=== PATIENT | female | born 1965 | race Two or more races ===

== ENCOUNTER 2018-01-24 21:42 | Emergency (ER) | payer MEDICAID ==
[~2018-01-24] VITALS: Ht 142.2 cm; Wt 81.6 kg
[~2018-01-24 21:42] MED LIST: ALBU18 IN; ASP81EC PO; FAM20T PO; LISI30TA36 PO; METF-370 PO; ONDA8TAB6 PO; OXYB10TA13 PO; PROP80CA10 PO; TRAM50TA2 PO
[2018-01-25 04:22] LABS: Basophils # (auto) 0 uL; Basophils % (auto) 0.5 % (0.0-2.0); Eosinophils # (auto) 0.1 uL; Hemoglobin 12.6 g/dL (12.2-16.2); Monocytes # (auto) 0.8 uL; Red Blood Cells 4.66 10^6/uL (4.0-5.20)
[2018-01-25 04:23] LABS: Eosinophils % (auto) 1.1 % (0.0-7.0); Hematocrit 38.6 % (36.0-46.0); Mean Corpuscular Hemoglobin 27.1 pg (28.0-32.0); Mean Corpuscular Hgb Conc. 32.7 g/dL (32.0-36.0); Monocytes % (auto) 9.8 % (0.0-12.0); Neutrophils # (auto) 4.6 uL; Neutrophils % (auto) 53.6 % (37.0-80.0); Nucleated Red Blood Cells % 0.1 %; Platelet Count (auto) 263 10^3/uL (140-450); Red Cell Distribution Width 13.9 % (11.8-14.3); White Blood Cell 8.5 10^3/uL (4.4-10.8)
[2018-01-25 04:38] LABS: BUN/Creatinine Ratio 33.3; Calcium 9.3 mg/dL (8.5-10.1); Potassium 3.6 mmol/L (3.5-5.1)
[2018-01-25 10:23] VITALS: BP 124/44
[2018-01-25] MEDS ORDERED: MECLIZINE HCL 25 MG TAB PO ONE (10:30)
== END 2018-01-25 10:43 | disposition home or self-care (01) ==
LOC: ER 21:42
DX: R42 Dizziness and giddiness (principal); E11.9 Type 2 diabetes mellitus without complications; I10 Essential (primary) hypertension; Z88.6 Allergy status to analgesic agent; Z88.0 Allergy status to penicillin
CPT/HCPCS: 36415; 70450; 80048; 81002; 85025; 99285; J8597

== ENCOUNTER 2018-07-10 19:37 | Emergency (ER) | payer MEDICAID ==
[~2018-07-10] VITALS: Ht 142.2 cm; Wt 75.3 kg
[~2018-07-10 19:37] MED LIST changes: +ONDA-143 PO; -ONDA8TAB6 PO; -OXYB10TA13 PO; +OXYB10TA14 PO; -PROP80CA10 PO; +PROP80CA40 PO
[2018-07-10 22:05] LABS: Albumin 3.2 g/dL (3.4-5.0); Calcium 9.1 mg/dL (8.5-10.1); Potassium 3.8 mmol/L (3.5-5.1)
[2018-07-10 22:08] LABS: Bilirubin, Total 0.8 mg/dL (0.2-1.0); Total Protein 7.4 g/dL (6.4-8.2)
[2018-07-10 22:16] LABS: Basophils # (auto) 0 uL; Basophils % (auto) 0.2 % (0.0-2.0); Eosinophils # (auto) 0.1 uL; Eosinophils % (auto) 0.8 % (0.0-7.0); Hematocrit 39.4 % (36.0-46.0); Hemoglobin 13.1 g/dL (12.2-16.2); Lymphocytes # (auto) 3.3 uL; Lymphocytes % (auto) 34.5 % (10.0-50.0); Mean Corpuscular Hemoglobin 27.9 pg (28.0-32.0); Mean Corpuscular Hgb Conc. 33.3 g/dL (32.0-36.0); Mean Corpuscular Volume 83.9 fL (80.0-100.0); Monocytes # (auto) 0.8 uL; Monocytes % (auto) 8.2 % (0.0-12.0); Neutrophils # (auto) 5.4 uL; Neutrophils % (auto) 56.3 % (37.0-80.0); Nucleated Red Blood Cells % 0.1 %; Platelet Count (auto) 264 10^3/uL (140-450); Prothrombin Time 10.7 sec (9.27-12.13); Red Cell Distribution Width 13.8 % (11.8-14.3); White Blood Cell 9.6 10^3/uL (4.4-10.8)
[2018-07-10] MEDS ORDERED: HYDROcodone-ACET 10/325MG TAB PO ONE (23:45)
[2018-07-11] MEDS ORDERED: diphenhdrAMINE HCL 25 MG CAP PO ONE ×2 (00:35→00:45)
[2018-07-11] MEDS ORDERED: IBUPROFEN 800 MG TAB PO ONE ×2 (01:48→02:00)
[2018-07-11] MEDS ORDERED: ONDANSETRON ODT 4 MG TAB PO ONE (02:30)
[2018-07-11 02:39] VITALS: BP 125/81
== END 2018-07-11 05:42 | disposition home or self-care (01) ==
LOC: ER 19:37
DX: M54.17 Radiculopathy, lumbosacral region (principal); M54.42 Lumbago with sciatica, left side; E11.9 Type 2 diabetes mellitus without complications; I10 Essential (primary) hypertension; Z88.0 Allergy status to penicillin; Z88.6 Allergy status to analgesic agent
CPT/HCPCS: 36415; 72131; 80053; 83880; 85025; 85610; 85730; 93971; 99285; Q0162

== ENCOUNTER 2018-10-25 15:38 | Emergency (ER) | payer MEDICAID ==
[~2018-10-25] VITALS: Ht 142.2 cm; Wt 90.7 kg
[2018-10-25 17:11] LABS: Basophils # (auto) 0 uL; Basophils % (auto) 0.2 % (0.0-2.0); Eosinophils # (auto) 0.1 uL; Eosinophils % (auto) 0.7 % (0.0-7.0); Hematocrit 42.1 % (36.0-46.0); Hemoglobin 13.7 g/dL (12.2-16.2); Lymphocytes # (auto) 2.2 uL; Lymphocytes % (auto) 19.5 % (10.0-50.0); Mean Corpuscular Hgb Conc. 32.7 g/dL (32.0-36.0); Mean Corpuscular Volume 85.6 fL (80.0-100.0); Monocytes # (auto) 0.6 uL; Monocytes % (auto) 5.1 % (0.0-12.0); Neutrophils # (auto) 8.5 uL; Neutrophils % (auto) 74.5 % (37.0-80.0); Nucleated Red Blood Cells % 0.1 %; Platelet Count (auto) 298 10^3/uL (140-450); Red Blood Cells 4.91 10^6/uL (4.0-5.20); Red Cell Distribution Width 14.3 % (11.8-14.3); White Blood Cell 11.5 10^3/uL (4.4-10.8)
[2018-10-25 17:28] LABS: Albumin 3.3 g/dL (3.4-5.0); Anion Gap 5 (5-15); Blood Urea Nitrogen 11 mg/dL (7-18); Calcium 8.8 mg/dL (8.5-10.1); Carbon Dioxide 31 mmol/L (21-32); Chloride 102 mmol/L (98-107); Glucose 126 mg/dL (74-106); Potassium 3.2 mmol/L (3.5-5.1); Sodium 138 mmol/L (136-145)
[2018-10-25 17:33] LABS: Alanine Aminotransferase 18 U/L (13-56); Alkaline Phosphatase 251 U/L (45-117); Aspartate Aminotransferase 14 U/L (15-37); BUN/Creatinine Ratio 24.4; Bilirubin, Total 0.4 mg/dL (0.2-1.0); GFR African American 186 mL/min; GFR Non-African American 154 mL/min; Total Protein 7.8 g/dL (6.4-8.2)
[2018-10-26] MEDS ORDERED: SODIUM CHLORIDE 0.9% 1,000 ML IV ONE (02:45)
[2018-10-26] MEDS ORDERED: PHENAZOPYRIDINE HCL 100 MG TAB PO ONE (02:45)
[2018-10-26 03:53] LABS: Urine Bacteria FEW /hpf (None Seen); Urine Blood 1+ /uL (Negative); Urine Mucus FEW (None Seen); Urine Specific Gravity 1.024 (1.001-1.035); Urine WBC 343 /hpf (0 - 5)
[2018-10-26 05:17] VITALS: BP 100/64
== END 2018-10-26 05:12 | disposition home or self-care (01) ==
LOC: ER 15:38
DX: N39.0 Urinary tract infection, site not specified (principal); R55 Syncope and collapse; E11.9 Type 2 diabetes mellitus without complications; I10 Essential (primary) hypertension; E07.9 Disorder of thyroid, unspecified; Z88.5 Allergy status to narcotic agent; Z88.6 Allergy status to analgesic agent; Z88.0 Allergy status to penicillin; Z79.82 Long term (current) use of aspirin; Z79.84 Long term (current) use of oral hypoglycemic drugs; Z79.899 Other long term (current) drug therapy
CPT/HCPCS: 36415; 70450; 71046; 80053; 81001; 82962; 84443; 84484; 85025; 93005; 96360; 99284; J7030

== ENCOUNTER 2019-01-14 19:35 | Emergency (ER) | payer MEDICAID ==
[~2019-01-14] VITALS: Ht 142.2 cm; Wt 90.7 kg
[2019-01-14 19:42] VITALS: BP 163/79
[2019-01-14] MEDS ORDERED: HYDROcodone-ACET 10/325MG TAB PO ONE (22:00)
[2019-01-14] MEDS ORDERED: KETOROLAC TROMETH 60MG/2ML VIAL IM ONE (22:15)
== END 2019-01-14 22:33 | disposition home or self-care (01) ==
LOC: ER 19:46
DX: S33.5XXA Sprain of ligaments of lumbar spine, initial encounter (principal); K43.2 Incisional hernia without obstruction or gangrene; K43.9 Ventral hernia without obstruction or gangrene; E66.01 Morbid (severe) obesity due to excess calories; E11.9 Type 2 diabetes mellitus without complications; I10 Essential (primary) hypertension; E07.9 Disorder of thyroid, unspecified; Z88.5 Allergy status to narcotic agent; Z88.0 Allergy status to penicillin; Z88.6 Allergy status to analgesic agent; Z79.82 Long term (current) use of aspirin; Z79.84 Long term (current) use of oral hypoglycemic drugs; Z79.899 Other long term (current) drug therapy; Z68.41 Body mass index [BMI] 40.0-44.9, adult; X50.9XXA Other and unspecified overexertion or strenuous movements or postures, initial encounter; Y93.89 Activity, other specified; Y92.89 Other specified places as the place of occurrence of the external cause; Y99.8 Other external cause status
CPT/HCPCS: 72100; 81002; 96372; 99283; J1885

== ENCOUNTER 2019-02-12 18:20 | Emergency (ER) | payer MEDICAID ==
[~2019-02-12] VITALS: Ht 142.2 cm; Wt 86.2 kg
[2019-02-12 19:16] LABS: Basophils # (auto) 0.1 uL; Basophils % (auto) 0.6 % (0.0-2.0); Eosinophils # (auto) 0.1 uL; Eosinophils % (auto) 0.7 % (0.0-7.0); Hematocrit 46.3 % (36.0-46.0); Hemoglobin 15.1 g/dL (12.2-16.2); Lymphocytes # (auto) 2.2 uL; Lymphocytes % (auto) 21.8 % (10.0-50.0); Mean Corpuscular Hgb Conc. 32.7 g/dL (32.0-36.0); Mean Corpuscular Volume 88.7 fL (80.0-100.0); Monocytes # (auto) 0.5 uL; Monocytes % (auto) 5.3 % (0.0-12.0); Neutrophils # (auto) 7.2 uL; Neutrophils % (auto) 71.6 % (37.0-80.0); Nucleated Red Blood Cells % 0.1 %; Platelet Count (auto) 320 10^3/uL (140-450); Red Blood Cells 5.22 10^6/uL (4.0-5.20); Red Cell Distribution Width 15.9 % (11.8-14.3); White Blood Cell 10.1 10^3/uL (4.4-10.8)
[2019-02-12 19:27] LABS: Potassium 3.7 mmol/L (3.5-5.1)
[2019-02-12 19:30] LABS: Albumin 3.8 g/dL (3.4-5.0); Calcium 9.2 mg/dL (8.5-10.1)
[2019-02-12 19:32] LABS: BUN/Creatinine Ratio 20.7
[2019-02-12 19:35] LABS: Bilirubin, Total 0.6 mg/dL (0.2-1.0); Total Protein 8.6 g/dL (6.4-8.2)
[2019-02-13 00:48] VITALS: BP 156/84
== END 2019-02-13 00:53 | disposition home or self-care (01) ==
LOC: ER 18:20
DX: M79.18 Myalgia, other site (principal); R10.11 Right upper quadrant pain; E11.9 Type 2 diabetes mellitus without complications; I10 Essential (primary) hypertension; Z86.39 Personal history of other endocrine, nutritional and metabolic disease; Z88.0 Allergy status to penicillin; Z88.6 Allergy status to analgesic agent; Z79.899 Other long term (current) drug therapy
CPT/HCPCS: 36415; 74176; 80053; 82150; 83690; 85025; 93005

== ENCOUNTER 2019-02-18 21:09 | Inpatient (IN) | payer MEDICAID | END 2019-02-20 00:24 | disposition home or self-care (01) | LOC: TELE 02-19 04:32 → ER 21:09 | DX: T50.902A Poisoning by unspecified drugs, medicaments and biological substances, intentional self-harm, initial encounter (principal); D68.9 Coagulation defect, unspecified; E11.40 Type 2 diabetes mellitus with diabetic neuropathy, unspecified; E66.01 Morbid (severe) obesity due to excess calories; F32.1 Major depressive disorder, single episode, moderate; N39.0 Urinary tract infection, site not specified; I10 Essential (primary) hypertension ==

== ENCOUNTER 2019-05-02 13:13 | Emergency (ER) | payer MEDICAID ==
[~2019-05-02] VITALS: Ht 142.2 cm; Wt 99.8 kg
[~2019-05-02 13:13] MED LIST changes: -ALBU18 IN; -ASP81EC PO; -FAM20T PO; +FLUT0.05 NAS; +GABA300C10 PO; +LISI-275 PO; -LISI30TA36 PO; +METH5T PO; +OMEP20TA PO; -ONDA-143 PO; -OXYB10TA14 PO; -TRAM50TA2 PO
[2019-05-02 16:37] LABS: Urine Bacteria FEW /hpf (None Seen); Urine Blood 1+ /uL (Negative); Urine Mucus FEW (None Seen); Urine Specific Gravity 1.027 (1.001-1.035); Urine WBC 2 /hpf (0 - 5)
[2019-05-02 16:45] LABS: Basophils # (auto) 0 uL; Basophils % (auto) 0.4 % (0.0-2.0); Eosinophils # (auto) 0.1 uL; Eosinophils % (auto) 0.9 % (0.0-7.0); Hematocrit 43.2 % (36.0-46.0); Lymphocytes # (auto) 2.6 uL; Lymphocytes % (auto) 25.6 % (10.0-50.0); Mean Corpuscular Hemoglobin 29.2 pg (28.0-32.0); Mean Corpuscular Hgb Conc. 32.4 g/dL (32.0-36.0); Mean Corpuscular Volume 90.2 fL (80.0-100.0); Monocytes # (auto) 0.6 uL; Monocytes % (auto) 6.2 % (0.0-12.0); Neutrophils # (auto) 6.8 uL; Neutrophils % (auto) 66.9 % (37.0-80.0); Platelet Count (auto) 276 10^3/uL (140-450); Red Blood Cells 4.79 10^6/uL (4.0-5.20); Red Cell Distribution Width 14.8 % (11.8-14.3); White Blood Cell 10.1 10^3/uL (4.4-10.8)
[2019-05-02 17:03] LABS: INR 0.95 (0.9-1.15); Partial Thromboplastin Time 25.6 sec (23.64-32.05)
[2019-05-02 17:20] LABS: Albumin 3.7 g/dL (3.4-5.0); Magnesium 2.2 mg/dL (1.6-2.6); Potassium 3.5 mmol/L (3.5-5.1)
[2019-05-02 17:38] LABS: BUN/Creatinine Ratio 20.3; Bilirubin, Total 0.7 mg/dL (0.2-1.0)
[2019-05-02] MEDS ORDERED: traMADol HCL 50 MG TAB PO ONE (19:00)
[2019-05-02 19:10] VITALS: BP 138/81
== END 2019-05-02 21:11 | disposition home or self-care (01) ==
LOC: ER 13:15
DX: K29.70 Gastritis, unspecified, without bleeding (principal); N63.20 Unspecified lump in the left breast, unspecified quadrant; E11.9 Type 2 diabetes mellitus without complications; K21.9 Gastro-esophageal reflux disease without esophagitis; I10 Essential (primary) hypertension; E07.9 Disorder of thyroid, unspecified; Z88.6 Allergy status to analgesic agent; Z88.5 Allergy status to narcotic agent; Z79.899 Other long term (current) drug therapy; Z88.0 Allergy status to penicillin
CPT/HCPCS: 36415; 71045; 74176; 80053; 81001; 82962; 83735; 84484; 85025; 85610; 85730; 93005; 94761

== ENCOUNTER 2019-08-26 18:14 | Emergency (ER) | payer MEDICAID ==
[~2019-08-26] VITALS: Ht 142.2 cm; Wt 99.8 kg
[2019-08-26 20:38] LABS: Urine Bacteria FEW /hpf (None Seen); Urine Blood Negative /uL (Negative); Urine Mucus FEW (None Seen); Urine Specific Gravity 1.017 (1.001-1.035); Urine WBC 7 /hpf (0 - 5)
[2019-08-26 21:26] VITALS: BP 124/75
== END 2019-08-26 22:12 | disposition home or self-care (01) ==
LOC: ER 18:14
DX: N30.00 Acute cystitis without hematuria (principal); M54.5 Low back pain; E11.9 Type 2 diabetes mellitus without complications; K21.9 Gastro-esophageal reflux disease without esophagitis; I10 Essential (primary) hypertension; Z88.0 Allergy status to penicillin; Z88.6 Allergy status to analgesic agent; Z79.899 Other long term (current) drug therapy
CPT/HCPCS: 81001

== ENCOUNTER 2020-06-12 16:23 | Emergency (ER) | payer MEDICAID ==
[~2020-06-12] VITALS: Ht 142.2 cm; Wt 104.3 kg
[2020-06-12] MEDS ORDERED: ACETAMINOPHEN 500 MG TAB PO ONE (21:30)
[2020-06-12] MEDS ORDERED: BACLOFEN 10 MG TAB PO ONE (21:30)
[2020-06-12 21:57] VITALS: BP 143/61
== END 2020-06-12 22:46 | disposition home or self-care (01) ==
LOC: ER 16:23
DX: M54.17 Radiculopathy, lumbosacral region (principal); M54.41 Lumbago with sciatica, right side; E66.01 Morbid (severe) obesity due to excess calories; E11.9 Type 2 diabetes mellitus without complications; K21.9 Gastro-esophageal reflux disease without esophagitis; I10 Essential (primary) hypertension; Z79.899 Other long term (current) drug therapy; Z88.0 Allergy status to penicillin; Z88.5 Allergy status to narcotic agent

== ENCOUNTER 2021-06-14 18:57 | Emergency (ER) | payer MEDICAID ==
[~2021-06-14] VITALS: Ht 142.2 cm; Wt 99.8 kg
[2021-06-14 22:58] VITALS: BP 155/88
== END 2021-06-14 23:11 | disposition home or self-care (01) ==
LOC: ER 18:58
DX: J06.9 Acute upper respiratory infection, unspecified (principal); E11.9 Type 2 diabetes mellitus without complications; K21.9 Gastro-esophageal reflux disease without esophagitis; I10 Essential (primary) hypertension; Z20.822 Contact with and (suspected) exposure to COVID-19; Z86.718 Personal history of other venous thrombosis and embolism
CPT/HCPCS: 36415; 71045; 87426

== ENCOUNTER → 2021-09-18 | Outpatient (CLI) | payer MEDICAID ==
[~2021-09-18] MED LIST changes: +ALBUTEROL SULF 2.5 MG/0.5ML(0.5%) NEB SOLN ONE
== END | disposition home or self-care (01) ==
LOC: RT 07:56
PROVIDERS: ATTEND Internal Medicine Pulmonary Disease
DX: U07.1 COVID-19 (principal)
CPT/HCPCS: 94060

== ENCOUNTER 2022-10-12 08:13 | Emergency (ER) | payer MEDICAID ==
[~2022-10-12] VITALS: Ht 142.2 cm; Wt 104.5 kg
[~2022-10-12 08:13] MED LIST changes: -ALBUTEROL SULF 2.5 MG/0.5ML(0.5%) NEB SOLN ONE
[2022-10-12 08:37] VITALS: BP 164/71
[2022-10-12] MEDS ORDERED: IBUPROFEN 800 MG TAB PO ONE (08:45)
[2022-10-12] MEDS ORDERED: IBUP800T27 PO (09:36)
[2022-10-12] MEDS ORDERED: METH750T22 PO (09:36)
== END 2022-10-12 09:40 | disposition home or self-care (01) ==
LOC: ER 08:13
DX: S39.012A Strain of muscle, fascia and tendon of lower back, initial encounter (principal); E11.9 Type 2 diabetes mellitus without complications; K21.9 Gastro-esophageal reflux disease without esophagitis; I10 Essential (primary) hypertension; Z88.5 Allergy status to narcotic agent; Z88.0 Allergy status to penicillin; Z88.8 Allergy status to other drugs, medicaments and biological substances; Z79.899 Other long term (current) drug therapy; Z79.84 Long term (current) use of oral hypoglycemic drugs; V49.9XXA Car occupant (driver) (passenger) injured in unspecified traffic accident, initial encounter; Y93.89 Activity, other specified; Y92.89 Other specified places as the place of occurrence of the external cause; Y99.8 Other external cause status
CPT/HCPCS: 72100

== ENCOUNTER 2023-01-11 18:22 | Inpatient (IN) | payer MEDICAID ==
[~2023-01-11] VITALS: Ht 142.2 cm; Wt 110.2 kg
[~2023-01-11 18:22] MED LIST changes: +IBUP800T27 PO; +METH750T22 PO
[2023-01-11 19:40] LABS: Basophils # (auto) 0.2 10 ^3/uL (0-0.2); Basophils % (auto) 1.4 % (0.0-2.0); Eosinophils # (auto) 0.2 10 ^3/uL (0-0.8); Eosinophils % (auto) 1.3 % (0.0-7.0); Hematocrit 41.9 % (36.0-46.0); Hemoglobin 13.6 g/dL (12.2-16.2); Lymphocytes # (auto) 2.5 10 ^3/uL (0.4-5.4); Lymphocytes % (auto) 19.7 % (10.0-50.0); Mean Corpuscular Hemoglobin 28.4 pg (28.0-32.0); Mean Corpuscular Hgb Conc. 32.4 g/dL (32.0-36.0); Mean Corpuscular Volume 87.6 fL (80.0-100.0); Monocytes # (auto) 0.8 10 ^3/uL (0-1.3); Neutrophils # (auto) 9.1 10 ^3/uL (1.6-8.6); Neutrophils % (auto) 71.6 % (37.0-80.0); Nucleated Red Blood Cells % 0.1 %; Red Blood Cells 4.79 10^6/uL (4.0-5.20); Red Cell Distribution Width 14.8 % (11.8-14.3); White Blood Cell 12.7 10^3/uL (4.4-10.8)
[2023-01-11 19:54] LABS: INR 1.95 (0.9-1.15)
[2023-01-11 20:15] LABS: Albumin 3.2 g/dL (3.4-5.0); BUN/Creatinine Ratio 21.1; Calcium 8.9 mg/dL (8.5-10.1); Potassium 3.9 mmol/L (3.5-5.1)
[2023-01-11 20:17] LABS: Bilirubin, Total 0.3 mg/dL (0.2-1.0); Total Protein 7.7 g/dL (6.4-8.2)
[2023-01-11] MEDS ORDERED: metroNIDAZOLE 500MG/100ML 100 ML IV ONE (20:30)
[2023-01-11] MEDS ORDERED: SODIUM CHLORIDE 0.9% 500 ML IVB ONE (20:30)
[2023-01-12] MEDS ORDERED: DEXTROSE (50%) 50ML SYRG IV PRN (03:30)
[2023-01-12] MEDS ORDERED: diphenhdrAMINE HCL 50 MG/1 ML VL IV PRN (03:30)
[2023-01-12] MEDS ORDERED: MORPHINE SULFATE INJ 2 MG/ml SYRG IV PRN ×2 (03:30→04:30)
[2023-01-12] MEDS ORDERED: ONDANSETRON HCL 4 MG/2 ML VIAL IV PRN (03:30)
[2023-01-12] MEDS ORDERED: NITROGLYCERIN 0.4 MG SL TAB SL PRN (04:30)
[2023-01-12 04:59] LABS: Basophils # (auto) 0 10 ^3/uL (0-0.2); Basophils % (auto) 0.4 % (0.0-2.0); Eosinophils # (auto) 0.1 10 ^3/uL (0-0.8); Hematocrit 43.5 % (36.0-46.0); Hemoglobin 13.8 g/dL (12.2-16.2); Lymphocytes # (auto) 2.6 10 ^3/uL (0.4-5.4); Lymphocytes % (auto) 20.8 % (10.0-50.0); Monocytes # (auto) 0.8 10 ^3/uL (0-1.3); Monocytes % (auto) 6.7 % (0.0-12.0); Neutrophils # (auto) 8.8 10 ^3/uL (1.6-8.6); Neutrophils % (auto) 71.1 % (37.0-80.0); Nucleated Red Blood Cells % 0.1 %; Red Blood Cells 4.83 10^6/uL (4.0-5.20); White Blood Cell 12.3 10^3/uL (4.4-10.8)
[2023-01-12 05:00] LABS: Mean Corpuscular Hemoglobin 28.6 pg (28.0-32.0); Mean Corpuscular Hgb Conc. 31.8 g/dL (32.0-36.0); Red Cell Distribution Width 14.6 % (11.8-14.3)
[2023-01-12 05:23] LABS: Albumin 3.3 g/dL (3.4-5.0); BUN/Creatinine Ratio 20.9; Calcium 8.7 mg/dL (8.5-10.1); Potassium 3.9 mmol/L (3.5-5.1)
[2023-01-12 05:26] LABS: Bilirubin, Total 0.6 mg/dL (0.2-1.0); Total Protein 7.1 g/dL (6.4-8.2)
[2023-01-12] MEDS: metroNIDAZOLE 500MG/100ML 100 ML IV SCH ×3 (05:35→21:44)
[2023-01-12] MEDS: SODIUM CHLORIDE 0.9% 1,000 ML IV SCH ×2 (05:38→15:47)
[2023-01-12] MEDS: ACCU-CHEK COMFORT CURVE STRIP VI SCH ×3 (05:46→18:47)
[2023-01-12] MEDS: InsuLIN REG 1unit/0.01ml Soln (100units/ml) SC SCH ×3 (05:48→18:49)
[2023-01-12] MEDS: METOPROLOL TARTRATE 25 MG TAB PO SCH ×2 (10:26→21:43)
[2023-01-12] MEDS: IBUPROFEN 600 MG TAB PO PRN (10:26)
[2023-01-12] MEDS: FAMOTIDINE (10MG/ML) 2ML VL IV SCH (10:27)
[2023-01-12 10:48] LABS: Urine Bacteria NONE SEEN /hpf (None Seen); Urine Blood Negative /uL (Negative); Urine Mucus FEW (None Seen); Urine WBC 2 /hpf (0 - 5)
[2023-01-12 13:49] VITALS: BP 111/66
[2023-01-12 22:00] VITALS: BP 118/58
[2023-01-12 22:46] VITALS: BP 118/58
[2023-01-13] MEDS: ACCU-CHEK COMFORT CURVE STRIP VI SCH ×4 (00:21→17:42)
[2023-01-13 05:00] VITALS: BP 121/68
[2023-01-13] MEDS: InsuLIN REG 1unit/0.01ml Soln (100units/ml) SC SCH ×4 (06:00→17:42)
[2023-01-13] MEDS: metroNIDAZOLE 500MG/100ML 100 ML IV SCH ×3 (06:09→22:19)
[2023-01-13 07:06] LABS: Basophils # (auto) 0 10 ^3/uL (0-0.2); Basophils % (auto) 0.3 % (0.0-2.0); Eosinophils # (auto) 0.1 10 ^3/uL (0-0.8); Eosinophils % (auto) 1.2 % (0.0-7.0); Hematocrit 36.9 % (36.0-46.0); Hemoglobin 12.4 g/dL (12.2-16.2); Lymphocytes # (auto) 1.7 10 ^3/uL (0.4-5.4); Lymphocytes % (auto) 18.7 % (10.0-50.0); Mean Corpuscular Hemoglobin 29.4 pg (28.0-32.0); Mean Corpuscular Hgb Conc. 33.5 g/dL (32.0-36.0); Mean Corpuscular Volume 87.8 fL (80.0-100.0); Monocytes # (auto) 0.7 10 ^3/uL (0-1.3); Monocytes % (auto) 7.9 % (0.0-12.0); Neutrophils # (auto) 6.5 10 ^3/uL (1.6-8.6); Neutrophils % (auto) 71.9 % (37.0-80.0); Nucleated Red Blood Cells % 0.1 %; Red Blood Cells 4.21 10^6/uL (4.0-5.20); Red Cell Distribution Width 14.8 % (11.8-14.3); White Blood Cell 9.1 10^3/uL (4.4-10.8)
[2023-01-13 07:37] LABS: Potassium 3.5 mmol/L (3.5-5.1)
[2023-01-13 07:57] LABS: Albumin 2.9 g/dL (3.4-5.0); BUN/Creatinine Ratio 19.6; Calcium 8.6 mg/dL (8.5-10.1); Total Protein 6.6 g/dL (6.4-8.2)
[2023-01-13 09:00] VITALS: BP 108/67
[2023-01-13] MEDS: METOPROLOL TARTRATE 25 MG TAB PO SCH ×2 (10:14→22:19)
[2023-01-13] MEDS: FAMOTIDINE (10MG/ML) 2ML VL IV SCH (10:14)
[2023-01-13 13:00] VITALS: BP 121/62
[2023-01-13] MEDS: SODIUM CHLORIDE 0.9% 1,000 ML IV SCH (13:02)
[2023-01-13] MEDS ORDERED: METR500T PO (16:05)
[2023-01-13] MEDS ORDERED: LEVO500T31 PO (16:05)
[2023-01-13 17:00] VITALS: BP 137/77
[2023-01-13] MEDS: levoFLOXacin 500 MG TAB PO SCH (17:28)
[2023-01-13 22:00] VITALS: BP 147/64
[2023-01-14] MEDS: ACCU-CHEK COMFORT CURVE STRIP VI SCH ×3 (00:08→11:41)
[2023-01-14] MEDS: InsuLIN REG 1unit/0.01ml Soln (100units/ml) SC SCH ×3 (00:09→11:44)
[2023-01-14 05:00] VITALS: BP 110/79
[2023-01-14] MEDS: SODIUM CHLORIDE 0.9% 1,000 ML IV SCH (05:30)
[2023-01-14] MEDS: metroNIDAZOLE 500MG/100ML 100 ML IV SCH ×2 (06:11→13:16)
[2023-01-14 09:00] VITALS: BP 152/88
[2023-01-14] MEDS: levoFLOXacin 500 MG TAB PO SCH (09:25)
[2023-01-14] MEDS: METOPROLOL TARTRATE 25 MG TAB PO SCH (09:28)
[2023-01-14] MEDS: IBUPROFEN 600 MG TAB PO PRN (10:25)
[2023-01-14] MEDS: FAMOTIDINE (10MG/ML) 2ML VL IV SCH (10:25)
[2023-01-14 13:29] VITALS: BP 104/63
[2023-01-14 13:59] LABS: Hepatitis C Antibody Negative (Negative)
[2023-01-14 17:00] VITALS: BP 109/64
== END 2023-01-14 17:20 | disposition home or self-care (01) | DRG 244 ==
LOC: ER 18:22 → WEST WING 23:15 → OVERFLOW 01-12 04:24 → WEST WING 01-12 13:01
PROVIDERS: ADMIT Nurse Practitioner Family; ATTEND Internal Medicine
DX: K57.32 Diverticulitis of large intestine without perforation or abscess without bleeding (principal); E11.42 Type 2 diabetes mellitus with diabetic polyneuropathy; K21.9 Gastro-esophageal reflux disease without esophagitis; E11.65 Type 2 diabetes mellitus with hyperglycemia; E78.5 Hyperlipidemia, unspecified; I10 Essential (primary) hypertension; Z20.822 Contact with and (suspected) exposure to COVID-19; I25.10 Atherosclerotic heart disease of native coronary artery without angina pectoris; I25.2 Old myocardial infarction; Z86.718 Personal history of other venous thrombosis and embolism; Z88.6 Allergy status to analgesic agent; Z88.5 Allergy status to narcotic agent; Z88.0 Allergy status to penicillin
CPT/HCPCS: 36415; 74176; 80053; 81001; 82962; 85025; 85610; 86803; 87340; 87426; 96365; G0378; J1815; J2405; J3490

== ENCOUNTER 2024-12-11 04:09 | Inpatient (IN) | payer MEDICAID ==
[~2024-12-11] VITALS: Ht 142.2 cm; Wt 107.0 kg
[~2024-12-11 04:09] MED LIST changes: -FLUT0.05 NAS; +GABA-1250 PO; -GABA300C10 PO; -IBUP800T27 PO; +LEVO500T31 PO; -METH5T PO; +METH5TAB98 PO; -METH750T22 PO; +METR500T PO
--- NOTE | 2024-12-11 04:32 | ED.PDOC ---
GI ASSESSMENT HPI Comments 59-year-old female came to ER for abdominal pain. She has been having abdominal pain for the past few hours, localize in the left lower quadrant, associated nausea, vomiting once, and alternating episodes of diarrhea and constipation. She denies any fever or urinary symptoms. Chief Complaint: Abdominal Pain Time Seen by MD: 04:31 Primary Care Provider: JOSE DANIEL Rascon Notes: Nurses Notes Allergies: Coded Allergies: Acetaminophen (Verified Allergy, Severe, 01/14/19) Hydrocodone (Verified Allergy, Severe, 01/14/19) Codeine (Unverified Allergy, Unknown, 01/14/19) Penicillins (Unverified Allergy, Unknown, 01/14/19) Home Meds Active Scripts Metronidazole (Flagyl) 500 Mg Tab, 500 MG PO DAILY, #10 TAB Prov:CARRIE ANTHONY MD 01/13/23 Levofloxacin (Levaquin) 500 Mg Tab, 500 MG PO DAILY, #10 TAB Prov:CARRIE ANTHONY MD 01/13/23 Reported Medications Warfarin Sodium (Warfarin Sodium) 2 Mg Tab, 2 MG PO DAILY 12/11/24 Warfarin Sodium (Warfarin Sodium) 1 Mg Tab 12/11/24 Atorvastatin Calcium (ATORVASTATIN CALCIUM) 80 Mg Tab, 80 MG PO DAILY 12/11/24 Sertraline Hcl (Sertraline Hcl) 25 Mg Tab, 1 TAB PO DAILY 12/11/24 Propranolol Hcl (Inderal La) 80 Mg Cap, 80 MG PO BID, CAP 02/19/19 Metformin Hydrochloride (Metformin Hcl) 500 Mg Tab, 1000 MG PO IBID for 30 Days, MG 02/19/19 Omeprazole (Gnp Omeprazole) 20 Mg Tab, 2 TAB PO DAILY, #90 TAB 1 Refill 02/19/19 Lisinopril (Lisinopril) 5 Mg Tab, 5 MG PO DAILY for 30 Days, MG 02/19/19 Gabapentin (Gabapentin) 300 Mg Cap, 300 MG PO BID for 30 Days, MG 02/19/19 Methimazole (Methimazole) 5 Mg Tab, 5 MG PO DAILY, TAB 02/19/19 Information Source: Patient Mode of Arrival: Ambulatory Timing: Hours Duration: Intermittent Prehospital treatment: None Quality: Aching Vomitus: Watery Stool: Loose, Watery Severity: Moderate Recent: None Recent Hx of: Abdominal Surgery Pain Location: LLQ Modifying Factors: Nothing Associated sign and symptoms: Nausea, Vomiting, Diarrhea, Abdominal Pain Past Medical History PAST MEDICAL HISTORY: DM, GERD, High Lipids, HTN, CT, Thyroid Surgical History: Denies all surgeries [employer] History: Uterine Fibroids Family History Family History: No family hx of DM, No family hx of Heart claude, No family hx of HTN Social History Smoker: Non-Smoker Alcohol: Denies ETOH Use Drugs: Denies Drug Use Lives In: Home Constitutional: denies: chills, diaphoresis, fatigue, fever, malaise, sweats, weakness, others EENTM: denies: blurred vision, double vision, ear bleeding, ear discharge, ear drainage, ear pain, ear ringing, eye pain, eye redness, hearing loss, mouth pain, mouth swelling, nasal discharge, nose bleeding, nose congestion, nose pain, photophobia, tearing, throat pain, throat swelling, voice changes, others Respiratory: denies: cough, hemoptysis, orthopnea, SOB at rest, shortness of breath, SOB with excertion, stridor, wheezing, others Cardiovascular: denies: chest pain, dizzy spells, diaphoresis, Dyspnea on exertion, edema, irregular heart beat, left arm pain, lightheadedness, palpitations, PND, syncope, others Gastrointestinal: reports: abdominal pain, constipated, diarrhea, nausea, vomiting; denies: abdomen distended, blood streaked bowels, dysphagia, difficulty swallowing, hematemesis, melena, poor appetite, poor fluid intake, rectal bleeding, rectal pain, others Genitourinary: denies: abnormal vagina bleeding, burning, dyspareunia, dysuria, flank pain, frequency, hematuria, incontinence, pain, , vagina di scharge, urgency, others Neurological: denies: dizziness, fainting, headache, left sided numbness, left sided weakness, numbness, paresthesia, pre-existing deficit, right sided numbness, right sided weakness, seizure, speech problems, tingling, tremors, weakness, others Musculoskeletal: denies: back pain, gout, joint pain, joint swelling, muscle pain, muscle stiffness, neck pain, others Integumetry: denies: bruises, change in color, change in hair/nails, dryness, laceration, lesions, lumps, rash, wounds, others Allergic/Immunocompromised: denies: Difficulty Healing, Frequent Infections, Hives, Itching, others Hematologic/Lymphatic: denies: anemia, blood clots, easy bleeding, easy bruising, swollen glands, others Endocrine: denies: excessive hunger, excessive sweating, excessive thirst, excessive urination, flushing, intolerance to cold, intolerance to heat, unexplained weight gain, unexplained weight loss, others Psychiatric: denies: anxiety, bipolar disorder, depression, hopeless, panic disorder, schizophrenia, sleepless, suicidal, others Physical Exam General Appearance: No Apparent Distress, Normal HEENT: Normal ENT Inspection, Pharynx Normal, TMs Normal Neck: Full Range of Motion, Non-Tender, Normal, Normal Inspection Respiratory: Chest Non-Tender, Lungs Clear, No Accessory Muscle Use, No Respiratory Distress, Normal Breath Sounds Cardiovascular: No Edema, No JVD, No Murmur, No Gallop, Normal Peripheral Pulses, Regular Rate/Rhythm Breast Exam: Deferred Gastrointestinal: LLQ, No Organomegaly, No Pulsatile Mass, Normal Bowel Sounds, Soft, Tenderness Genitalia: Deferred Pelvic: Deferred Rectal: Deferred Extremities: No calf tenderness, Normal capillary refill, Normal inspection, Normal range of motion, Non-tender, No pedal edema Musculoskeletal : Apperance: Normal Neurologic: Alert, loss control consultant II-XII nml as Tested, No Motor Deficits, Normal Affect, Normal Mood, No Sensory Deficits Cerebellar Function: Normal Reflexes: Normal Skin: Dry, Normal Color, Warm Lymphatic: No Adenopathy Was a procedure done? Was a procedure done?: No GI differential Dx Differential Diagnosis: Constipation, Diverticular disease, Gastritis/PUD, Gastroenteritis, Hernia, Ovarian cyst/torsion, UTI, Urolithiasis X-Ray, Labs, Meds, VS Vital Signs Date Time Temp Pulse Resp B/P (MAP) Pulse Ox O2 Delivery O2 Flow Rate FiO2 12/11/24 08:00 85 15 93 Room Air* 0 21 12/11/24 08:00 97.6 85 15 131/65 (87) 93 97.6 12/11/24 05:25 78 18 95 Room Air 12/11/24 05:25 98.4 78 18 147/61 (89) 95 98.4 12/11/24 04:15 98.4 106 18 135/75 (95) 95 Lab Test 12/11/24 07:07 12/11/24 04:22 Range/Units White Blood Count 12.5 H 4.4-10.8 10^3/uL Red Blood Count 4.45 4.0-5.20 10^6/uL Hemoglobin 12.7 12.2-16.2 g/dL Hematocrit 38.7 36.0-46.0 % Mean Corpuscular Volume 87.1 80.0-100.0 fL Mean Corpuscular Hemoglobin 28.6 28.0-32.0 pg Mean Corpuscular Hemoglobin Concent 32.8 32.0-36.0 g/dL Red Cell Distribution Width 15.1 H 11.8-14.3 % Platelet Count 322 140-450 10^3/uL Mean Platelet Volume 7.6 6.9-10.8 fL Neutrophils (%) (Auto) 76.2 37.0-80.0 % Lymphocytes (%) (Auto) 17.2 10.0-50.0 % Monocytes (%) (Auto) 5.0 0.0-12.0 % Eosinophils (%) (Auto) 0.5 0.0-7.0 % Basophils (%) (Auto) 1.1 0.0-2.0 % Neutrophils # (Auto) 9.5 H 1.6-8.6 10 ^3/uL Lymphocytes # (Auto) 2.1 0.4-5.4 10 ^3/uL Monocytes # (Auto) 0.6 0-1.3 10 ^3/uL Eosinophils # (Auto) 0.1 0-0.8 10 ^3/uL Basophils # (Auto) 0.1 0-0.2 10 ^3/uL Nucleated Red Blood Cells 0.0 % Sodium Level 140 136-145 mmol/L Potassium Level 4.3 3.5-5.1 mmol/L Chloride Level 104 98-107 mmol/L Carbon Dioxide Level 29 20-31 mmol/L Anion Gap 7 5-15 Blood Urea Nitrogen 13 9-23 mg/dL Creatinine 0.73 0.550-1.02 mg/dL Glomerular Filtration Rate Calc 94 >90 mL/min BUN/Creatinine Ratio 17.8 10.0-20.0 Serum Glucose 145 H 74-106 mg/dL Hemoglobin A1c 6.8 H <5.7 % A1C Calcium Level 9.5 8.7-10.4 mg/dL Urine Color Dark yellow Yellow Urine Clarity Turbid H Clear Urine pH 5.0 5.0-9.0 Urine Specific [place] 1.047 H 1.001-1.035 Urine Protein Normal Negative Urine Ketones Trace H Negative Urine Blood 1+ H Negative /uL Urine Nitrite Negative Negative Urine Bilirubin Negative Negative Urine Urobilinogen Normal Negative mg/dL Urine Leukocyte Esterase Negative Negative /uL Urine RBC 6 0 - 4 /hpf Urine Microscopic WBC 3 0-5 /HPF Urine Squamous Epithelial Cells Mod <5 /hpf Urine Bacteria Few H None Seen /hpf Urine Mucus Few None Seen Urine Glucose Normal Normal mg/dL Current Medications Medications (Trade) Dose Ordered Sig/Estefania Route Start Time Stop Time Status Last Admin Piperacillin Sod/ Tazobactam Sod 100 ml @ 100 mls/hr ONCE ONCE IV 12/11/24 09:30 12/11/24 10:29 DC 12/11/24 10:47 Time of 1ST Reevaluation: 04:28 Reevaluation 1ST: Unchanged Patient Education/Counseling: Diagnosis, Treatment Family Education/Counseling: No Family Present Departure 1 Departure Time of Disposition: 05:24 (Patient presented with abdominal pain that was concerning for possible appendicits, gastritis, cholecystitis, colitis, gastroenteritis, sbo, or orther possible surgical emergency. Data: 1. I ordered and reviewed the result of at least 3 labs including a CBC, BMP, and Urinalysis. 2. I independently interpreted the following tests: CT Abdoment and Pelvis is concerning for diverticulitis .Risk:This patient has a high risk of morbidity due to further diagnostic testing or treatment and may suffer from an acute abdominal process disorder. Workup reveals diverticulitis and patient should be admitted for further workup. and possible expert consultation. ) Impression: Primary Impression: Acute diverticulitis Disposition: ADMITTED INPATIENT Admit to: Med Surg Condition: Serious Critical Care Note Critical Care Time?: No Stability Stability form required: No Heart Score Heart Score: Heart Score Response (Comments) Value History N/A 0 EKG N/A 0 Age N/A 0 Risk Factors N/A 0 Troponin N/A 0 Total 0 I personally scribed for JULISSA REZA MD ([email or web address]) on 12/11/24 at 04:32. Electronically submitted by Andrew Severino ([email or web address]). JULISSA REZA MD Dec 11, 2024 04:32
[2024-12-11] MEDS: MORPHINE SULFATE 4 MG/ML SYR/VIAL IV ONE (05:09)
[2024-12-11] MEDS: SODIUM CHLORIDE 0.9% 1,000 ML IV ONE (05:21)
[2024-12-11] MEDS: ONDANSETRON HCL 4 MG/2 ML VIAL IV ONE (05:24)
[2024-12-11 05:45] LABS: Urine Bacteria FEW /hpf (None Seen); Urine Mucus FEW (None Seen); Urine Squamous Epithelial Cell MOD /hpf (<5); Urine WBC 3 /HPF (0-5)
[2024-12-11 05:48] LABS: Urine Color DARK YELLOW (Yellow)
[2024-12-11 05:49] LABS: Urine Blood 1+ /uL (Negative); Urine Clarity TURBID (Clear); Urine Protein, UAD Normal (Negative); Urine Specific Gravity 1.047 (1.001-1.035); Urine Urobilinogen Normal (Negative)
[2024-12-11 07:33] LABS: Basophils # (auto) 0.1 10 ^3/uL (0-0.2); Basophils % (auto) 1.1 % (0.0-2.0); Eosinophils # (auto) 0.1 10 ^3/uL (0-0.8); Eosinophils % (auto) 0.5 % (0.0-7.0); Hematocrit 38.7 % (36.0-46.0); Hemoglobin 12.7 g/dL (12.2-16.2); Lymphocytes # (auto) 2.1 10 ^3/uL (0.4-5.4); Lymphocytes % (auto) 17.2 % (10.0-50.0); Mean Corpuscular Hemoglobin 28.6 pg (28.0-32.0); Mean Corpuscular Hgb Conc. 32.8 g/dL (32.0-36.0); Mean Corpuscular Volume 87.1 fL (80.0-100.0); Monocytes # (auto) 0.6 10 ^3/uL (0-1.3); Neutrophils # (auto) 9.5 10 ^3/uL (1.6-8.6); Neutrophils % (auto) 76.2 % (37.0-80.0); Platelet Count (auto) 322 10^3/uL (140-450); Red Blood Cells 4.45 10^6/uL (4.0-5.20); Red Cell Distribution Width 15.1 % (11.8-14.3); White Blood Cell 12.5 10^3/uL (4.4-10.8)
[2024-12-11 07:45] LABS: Chloride 104 mmol/L (98-107); Potassium 4.3 mmol/L (3.5-5.1); Sodium 140 mmol/L (136-145)
[2024-12-11 07:46] LABS: Anion Gap 7 (5-15); Calcium 9.5 mg/dL (8.7-10.4); Carbon Dioxide 29 mmol/L (20-31)
[2024-12-11 07:51] LABS: BUN/Creatinine Ratio 17.8 (10.0-20.0); Blood Urea Nitrogen 13 mg/dL (9-23)
[2024-12-11 07:53] LABS: Glucose 145 mg/dL (74-106)
[2024-12-11 08:00] VITALS: PULSE 85; RESP 15; O2SAT 93
[2024-12-11] MEDS: IOHEXOL 300 MG/ML 100ML BOTTLE IJ ONE (08:27)
--- NOTE | 2024-12-11 09:02 | DVH ---
CLINICAL INFORMATION: 59 years old, Female; left lower quadrant pain. TECHNIQUE: Axial CT images of the abdomen and pelvis were obtained after the uneventful administrati on of 100 mL Omnipaque 300 IV contrast. Coronal and sagittal reformatted images were obtained, review ed, and stored. All CT scans at this medical facility are performed using dose modulation techniques as appropriate to a performed exam including the following: Automated exposure control was utilized; adjustment of the MA and/or KV according to patient size; and use of iterative reconstruction technTEXbase ue. CTDIvol = 28.02 mGy DLP = 1267.27 mGy-cm COMPARISON: None FINDINGS: Lung bases: Lung bases are clear. Liver: Hepatic steatosis. Biliary: No calcified gallstones or biliary ductal dilatation. Spleen: Unremarkable. Pancreas: Moderate fatty changes in the pancreas with moderate atrophy. Adrenal glands: Unremarkable. No mass. Kidneys: Hydronephrosis. Small cysts in the right kidney. Aorta/Vascular: No aneurysm or significant calcification. Retroperitoneum: Small subcentimeter retroperitoneal lymph nodes Bowel/mesentery: No small bowel obstruction. No free air or free fluid. Appendix is visualized and ap pears unremarkable. There is colonic diverticulosis with mild inflammatory stranding of the distal t ransverse colon, suspected acute diverticulitis. No evidence of perforation or abscess at this time. Pelvic organs: Grossly unremarkable. Bladder: Bladder is underdistended and suboptimally evaluated. Abdominal wall: Small fat containing umbilical hernia. Bones: No acute fracture or focal intraosseous lesion. IMPRESSION: 1. Colonic diverticulosis with diverticulitis involving the transverse colon. No evidence of perfora tion or abscess at this time. 2. Hepatic steatosis. 3. Small fat containing umbilical hernia. 4. Additional findings as detailed above.
[2024-12-11] MEDS ORDERED: ONDANSETRON HCL 4 MG/2 ML VIAL IV PRN (09:45)
[2024-12-11] MEDS ORDERED: DEXTROSE (50%) 50ML SYRG IV PRN (10:00)
--- NOTE | 2024-12-11 10:05 | DVHHP2 ---
History of Present Illness Reason for Visit: Left upper quadrant pain History of Present Illness Meghna Gonsalez is a 59-year-old female with past medical history of hypertension, hyperlipidemia, diabetes, GERD, thyroid disease, uterine fibroids, right leg DVT on warfarin, IA with no reported stents, anxiety, and fibroid removal in 2019 who presents to the ED for left upper quadrant pain, nausea, vomiting with no blood reported, and diarrhea x1 day. Patient reports the pain 7/10 constant and pressure-like. Patient reports that there are no relieving or triggering factors. She also states that she has been in and out of the hospital on but has been having constant pain in her abdomen and loose stools. Patient denies any chest pain, shortness of breath, fever, chills, lightheadedness, weakness, dizziness, recent ingestion of spoiled food, recent sick contacts, and headaches. Cardiovascular: HTN, IA, hyperipidemia GI: GERD Psych: Anxiety Endocrine: Diabetes, Hypothyroidism Past Medical History Uterine fibroids Right leg DVT on warfarin Past Surgical History: Other (Fibroid removal in 2019) Family History: Other (Both parents ) Smoke: No ALCOHOL: none Lives: with Family Domestic Violence: Neg Review of Systems Constitutional: No: Fever, Chills, Sweats, Weakness, Malaise, Other Eyes: No: Pain, Vision change, Conjunctivae inflammation, Eyelid inflammation, Other, Redness ENT: No: Ear pain, Ear discharge, Nose pain, Nose discharge, Nose congestion, Mouth pain, Mouth swelling, Throat pain, Throat swelling, Other Respiratory: No: Cough, Dry, Shortness of breath, SOB with excertion, Wheezing, Hemoptysis, Pleuritic Pain, Sputum, Wheezing, Other Cardiovascular: No: Chest Pain, Palpitations, Orthopnea, Paroxysmal Noc. Dyspnea, Edema, Lt Headedness, Other Gastrointestinal: Nausea, Vomiting, Abdominal Pain, Diarrhea; No: Constipation, Melena, Hematochezia, Other Genitourinary: No Dysuria, No Frequency, No Incontinence, No Hematuria, No Retention, No Other Musculoskeletal: No: other, neck pain, shoulder pain, arm pain, back pain, hand pain, leg pain, foot pain Skin: No: Rash, Lesions, Jaundice, Bruising, Other Neurological: No: Weakness, Numbness, Incoordination, Change in speech, Confusion, Seizures, Other Allergies: Coded Allergies: Acetaminophen (Verified Allergy, Severe, 01/14/19) Hydrocodone (Verified Allergy, Severe, 01/14/19) Codeine (Unverified Allergy, Unknown, 01/14/19) Penicillins (Unverified Allergy, Unknown, 01/14/19) Medications Current Medications Medications Dose Ordered Sig/Estefania Route Start Time Stop Time Status Last Admin Dose Admin Ondansetron HCl 4 mg Q4HP PRN IV 12/11/24 09:45 UNV Morphine Sulfate 1 mg Q6HP PRN IV 12/11/24 09:45 UNV Meropenem 50 ml @ 17 mls/hr Q8HR IV 12/11/24 14:00 UNV Exam Vital Signs Vital Signs Date Time Temp Pulse Resp B/P (MAP) Pulse Ox O2 Delivery O2 Flow Rate FiO2 12/11/24 08:00 85 15 93 Room Air* 0 21 12/11/24 08:00 97.6 131/65 (87) 97.6 General Appearance: Alert, Oriented X3, Cooperative, No acute distress HEENT: Atraumatic, PERRLA, EOMI, Mucous membr. moist/pink Respiratory: Normal air movement Cardiovascular: Normal S1, Normal S2, No murmurs Abdominal: Normal bowel sounds, Soft, No hepatospenomegaly, No masses Extremities: No clubbing, No cyanosis, No edema, Normal pulses, No tenderness/swelling Skin: No rashes, No breakdown, No significant lesion Neuro: Normal speech, Strength at 5/5 X4 ext, Normal tone, Sensation intact Psych/Mental Status: Mental status NL, Mood NL Labs/Xrays Labs Test 12/11/24 07:07 12/11/24 04:22 Range/Units White Blood Count 12.5 H 4.4-10.8 10^3/uL Red Blood Count 4.45 4.0-5.20 10^6/uL Hemoglobin 12.7 12.2-16.2 g/dL Hematocrit 38.7 36.0-46.0 % Mean Corpuscular Volume 87.1 80.0-100.0 fL Mean Corpuscular Hemoglobin 28.6 28.0-32.0 pg Mean Corpuscular Hemoglobin Concent 32.8 32.0-36.0 g/dL Red Cell Distribution Width 15.1 H 11.8-14.3 % Platelet Count 322 140-450 10^3/uL Mean Platelet Volume 7.6 6.9-10.8 fL Neutrophils (%) (Auto) 76.2 37.0-80.0 % Lymphocytes (%) (Auto) 17.2 10.0-50.0 % Monocytes (%) (Auto) 5.0 0.0-12.0 % Eosinophils (%) (Auto) 0.5 0.0-7.0 % Basophils (%) (Auto) 1.1 0.0-2.0 % Neutrophils # (Auto) 9.5 H 1.6-8.6 10 ^3/uL Lymphocytes # (Auto) 2.1 0.4-5.4 10 ^3/uL Monocytes # (Auto) 0.6 0-1.3 10 ^3/uL Eosinophils # (Auto) 0.1 0-0.8 10 ^3/uL Basophils # (Auto) 0.1 0-0.2 10 ^3/uL Nucleated Red Blood Cells 0.0 % Sodium Level 140 136-145 mmol/L Potassium Level 4.3 3.5-5.1 mmol/L Chloride Level 104 98-107 mmol/L Carbon Dioxide Level 29 20-31 mmol/L Anion Gap 7 5-15 Blood Urea Nitrogen 13 9-23 mg/dL Creatinine 0.73 0.550-1.02 mg/dL Glomerular Filtration Rate Calc 94 >90 mL/min BUN/Creatinine Ratio 17.8 10.0-20.0 Serum Glucose 145 H 74-106 mg/dL Calcium Level 9.5 8.7-10.4 mg/dL Urine Color Dark yellow Yellow Urine Clarity Turbid H Clear Urine pH 5.0 5.0-9.0 Urine Specific [place] 1.047 H 1.001-1.035 Urine Protein Normal Negative Urine Ketones Trace H Negative Urine Blood 1+ H Negative /uL Urine Nitrite Negative Negative Urine Bilirubin Negative Negative Urine Urobilinogen Normal Negative mg/dL Urine Leukocyte Esterase Negative Negative /uL Urine RBC 6 0 - 4 /hpf Urine Microscopic WBC 3 0-5 /HPF Urine Squamous Epithelial Cells Mod <5 /hpf Urine Bacteria Few H None Seen /hpf Urine Mucus Few None Seen Urine Glucose Normal Normal mg/dL COMPARISON: None FINDINGS: Lung bases: Lung bases are clear. Liver: Hepatic steatosis. Biliary: No calcified gallstones or biliary ductal dilatation. Spleen: Unremarkable. Pancreas: Moderate fatty changes in the pancreas with moderate atrophy. Adrenal glands: Unremarkable. No mass. Kidneys: Hydronephrosis. Small cysts in the right kidney. Aorta/Vascular: No aneurysm or significant calcification. Retroperitoneum: Small subcentimeter retroperitoneal lymph nodes Bowel/mesentery: No small bowel obstruction. No free air or free fluid. Appendix is visualized and appears unremarkable. There is colonic diverticulosis with mild inflammatory stranding of the distal transverse colon, suspected acute diverticulitis. No evidence of perforation or abscess at this time. Pelvic organs: Grossly unremarkable. Bladder: Bladder is underdistended and suboptimally evaluated. Abdominal wall: Small fat containing umbilical hernia. Bones: No acute fracture or focal intraosseous lesion. IMPRESSION: 1. Colonic diverticulosis with diverticulitis involving the transverse colon. No evidence of perforation or abscess at this time. 2. Hepatic steatosis. 3. Small fat containing umbilical hernia. 4. Additional findings as detailed above. Assessment/Plan Assessment/Plan Assessment/Plan: Intractable abdominal pain secondary to diverticulitis Leukocytosis likely due to diverticulitis Hepatic steatosis Small fat containing umbilical hernia Labs CT abdomen and pelvis noted IV antibiotics Zosyn started in ED Pain management Antiemetics NS 1 L given ED UA Diabetes type 2 uncontrolled Hemoglobin A1c ISS and Accu-Cheks Chronic hypertension Continue home medications Chronic hyperlipidemia Continue home medications History of GERD Continue home medication Thyroid disease Continue home medication Uterine fibroids Follow up outpatient with PCP Right leg DVT Continue warfarin History of anxiety Continue home medications FEN/PPX Diet Hep-Lock DVT prophylaxis not indicated patient ambulating PUD prophylaxis Protonix Admit to med surg Home medications reconciled Discussed plan of care with patient and nurse Plan discussed with: Patient My Orders Orders - JUDITH TATUM [employer] Procedure Category Date Status Time Admit ADMIT 12/11/24 Transmitted 09:39 Allergies LAURITA 12/11/24 In Process 09:39 Code Status CODE 12/11/24 Transmitted 09:39 Ondansetron Hcl PHA 12/11/24 Logged (Zofran) 09:45 Cardiac DIET 12/11/24 Transmitted Diet-2gna,Lofat,Lochol Lunch Morphine Sulfate PHA 12/11/24 Logged Injection 09:45 Meropenem 1gm Ivpb PHA 12/11/24 Logged (Merrem 1gm/ Ns) 09:45 Meropenem 1gm Ivpb PHA 12/11/24 Logged (Merrem 1gm/ Ns) 14:00 Date of Service: Dec 11, 2024 Billing Provider: JUDITH TATUM Common Visit Codes: [id number] INP/OBS CARE (HIGH) JUDITH TATUM Dec 11, 2024 10:05
[2024-12-11] MEDS ORDERED: SERT25TA28 PO (10:09)
[2024-12-11] MEDS ORDERED: WARF4TAB69 PO (10:09)
[2024-12-11] MEDS ORDERED: ATOR-47 PO (10:09)
[2024-12-11] MEDS ORDERED: WARF4TAB70 (10:09)
[2024-12-11] MEDS: PIPERACILLIN-TAZOB 3.375GM 100 ML IV ONE (10:47)
[2024-12-11] MEDS: InsuLIN REG 1unit/0.01ml Soln (100units/ml) SC SCH (11:30)
[2024-12-11] MEDS: ACCU-CHEK COMFORT CURVE STRIP VI SCH (11:33)
[2024-12-11] MEDS: MEROPENEM 1GM IVPB 50 ML IV ONE (13:18)
[2024-12-11 15:54] VITALS: BP 125/78; PULSE 70; PULSE 74; RESP 18; TEMP 97.6; O2SAT 98
[2024-12-11 17:00] VITALS: BP 141/86; PULSE 90; RESP 18; TEMP 98.1; O2SAT 93
[2024-12-11] MEDS: MORPHINE SULFATE INJ 2 MG/ml SYRG IV PRN (17:28)
[2024-12-11] MEDS: MEROPENEM 1GM IVPB 50 ML IV SCH (18:20)
[2024-12-11 20:00] VITALS: PULSE 92; RESP 20
[2024-12-11 21:00] VITALS: BP 136/92; PULSE 92; RESP 20; TEMP 97.1; O2SAT 93
[2024-12-11] MEDS: GABAPENTIN 300 MG CAP PO SCH (21:35)
[2024-12-11] MEDS: PROPRANOLOL HCL 80 MG PO SCH (21:35)
[2024-12-12] VITALS (7 sets, daily range): BP systolic 122–166; BP diastolic 59–84; PULSE 67–96; RESP 16–20; TEMP 97.4–97.9; O2SAT 91–100
[2024-12-12] MEDS ORDERED: PANTOPRAZOLE 40 MG/10 ML VIAL INJ IV SCH (10:00)
[2024-12-12] MEDS: LISINOPRIL 5 MG TAB PO SCH (10:14)
[2024-12-12] MEDS: PANTOPRAZOLE 40 MG TAB PO SCH (10:14)
[2024-12-12] MEDS ORDERED: MORPHINE SULFATE INJ 2 MG/ml SYRG IV PRN (11:30)
[2024-12-12] MEDS ORDERED: ONDANSETRON HCL 4 MG/2 ML VIAL IV PRN (11:30)
[2024-12-12] MEDS ORDERED: ACETAMINOPHEN 325 MG TAB PO PRN (11:30)
[2024-12-12] MEDS ORDERED: HYDROcodone-ACET 10/325MG TAB PO PRN (11:30)
[2024-12-12] MEDS: methIMAzole 5 MG TAB PO SCH (11:44)
[2024-12-12] MEDS ORDERED: PIPERACILLIN-TAZOB 3.375GM 100 ML IV SCH (12:00)
[2024-12-12 12:30] LABS: Basophils # (auto) 0 10 ^3/uL (0-0.2); Basophils % (auto) 0.4 % (0.0-2.0); Eosinophils # (auto) 0.2 10 ^3/uL (0-0.8); Eosinophils % (auto) 1.4 % (0.0-7.0); Hematocrit 41.4 % (36.0-46.0); Hemoglobin 13.3 g/dL (12.2-16.2); Lymphocytes # (auto) 2.2 10 ^3/uL (0.4-5.4); Lymphocytes % (auto) 20.5 % (10.0-50.0); Mean Corpuscular Hemoglobin 28.3 pg (28.0-32.0); Mean Corpuscular Hgb Conc. 32.2 g/dL (32.0-36.0); Mean Corpuscular Volume 88.1 fL (80.0-100.0); Monocytes # (auto) 0.7 10 ^3/uL (0-1.3); Monocytes % (auto) 6.7 % (0.0-12.0); Neutrophils # (auto) 7.8 10 ^3/uL (1.6-8.6); Nucleated Red Blood Cells % 0.1 %; Platelet Count (auto) 358 10^3/uL (140-450); Red Cell Distribution Width 14.9 % (11.8-14.3)
[2024-12-12 12:44] LABS: INR 1.82 (0.9-1.15); Partial Thromboplastin Time 37.9 SEC (24.5-34.5); Prothrombin Time 18.2 sec (9.3-11.8)
[2024-12-12] MEDS ORDERED: ZOFR4T PO (13:03)
[2024-12-12] MEDS ORDERED: PERCOT PO (13:03)
[2024-12-12] MEDS ORDERED: AUG875T PO (13:03)
--- NOTE | 2024-12-12 13:13 | DVHDS2 ---
Discharge Summary Date of Admission Dec 11, 2024 at 09:39 Date of Discharge: Dec 12, 2024 Admitting Diagnosis Diverticulosis Labs/Diagnostic Data: Laboratory Results Test 12/12/24 12:08 12/12/24 11:57 12/11/24 07:07 12/11/24 04:22 White Blood Count 11.0 10^3/uL (4.4-10.8) Red Blood Count 4.70 10^6/uL (4.0-5.20) Hemoglobin 13.3 g/dL (12.2-16.2) Hematocrit 41.4 % (36.0-46.0) Mean Corpuscular Volume 88.1 fL (80.0-100.0) Mean Corpuscular Hemoglobin 28.3 pg (28.0-32.0) Mean Corpuscular Hemoglobin Concent 32.2 g/dL (32.0-36.0) Red Cell Distribution Width 14.9 % (11.8-14.3) Platelet Count 358 10^3/uL (140-450) Mean Platelet Volume 7.5 fL (6.9-10.8) Neutrophils (%) (Auto) 71.0 % (37.0-80.0) Lymphocytes (%) (Auto) 20.5 % (10.0-50.0) Monocytes (%) (Auto) 6.7 % (0.0-12.0) Eosinophils (%) (Auto) 1.4 % (0.0-7.0) Basophils (%) (Auto) 0.4 % (0.0-2.0) Neutrophils # (Auto) 7.8 10 ^3/uL (1.6-8.6) Lymphocytes # (Auto) 2.2 10 ^3/uL (0.4-5.4) Monocytes # (Auto) 0.7 10 ^3/uL (0-1.3) Eosinophils # (Auto) 0.2 10 ^3/uL (0-0.8) Basophils # (Auto) 0 10 ^3/uL (0-0.2) Nucleated Red Blood Cells 0.1 % POC Glucose 133 mg/dl (70-106) Sodium Level 140 mmol/L (136-145) Potassium Level 4.3 mmol/L (3.5-5.1) Chloride Level 104 mmol/L (98-107) Carbon Dioxide Level 29 mmol/L (20-31) Anion Gap 7 (5-15) Blood Urea Nitrogen 13 mg/dL (9-23) BUN/Creatinine Ratio 17.8 (10.0-20.0) Serum Glucose 145 mg/dL (74-106) Hemoglobin A1c 6.8 % A1C (<5.7) Calcium Level 9.5 mg/dL (8.7-10.4) Urine Color Dark yellow (Yellow) Urine Clarity Turbid (Clear) Urine pH 5.0 (5.0-9.0) Urine Specific [place] 1.047 (1.001-1.035) Urine Protein Normal (Negative) Urine Ketones Trace (Negative) Urine Blood 1+ /uL (Negative) Urine Nitrite Negative (Negative) Urine Bilirubin Negative (Negative) Urine Urobilinogen Normal mg/dL (Negative) Urine Leukocyte Esterase Negative /uL (Negative) Urine RBC 6 /hpf (0 - 4) Urine Microscopic WBC 3 /HPF (0-5) Urine Squamous Epithelial Cells Mod /hpf (<5) Urine Bacteria Few /hpf (None Seen) Urine Mucus Few (None Seen) Urine Glucose Normal mg/dL (Normal) Other Laboratory Tests 12/12/24 12:08 12/11/24 07:07 Brief Hx & Hospital Course: HPI: Meghna Gonsalez is a 59-year-old female with past medical history of hypertension, hyperlipidemia, diabetes, GERD, thyroid disease, uterine fibroids, right leg DVT on warfarin, IA with no reported stents, anxiety, and fibroid removal in 2019 who presents to the ED for left upper quadrant pain, nausea, vomiting with no blood reported, and diarrhea x1 day. Patient reports the pain 7/10 constant and pressure-like. Patient reports that there are no relieving or triggering factors. She also states that she has been in and out of the hospital on but has been having constant pain in her abdomen and loose stools. Summary: NAD patient has left lower quadrant pain tender to palpation and labs showing the leukocytosis, tachycardia. CT abdomen and pelvis noncontrast shows diverticulosis with diverticulitis in transverse colon. CT abdomen also showing hepatic steatosis, umbilical hernia containing fat. UA specific gravity is high concerning for intravascular volume depletion. Patient is having intractable nausea unless admitted for acute diverticulosis with p.o. intolerance. Patient was started on IV Zosyn and escalated to meropenem ,, with pain management ,antiemetics and IV fluids. She continues to improve and tolerating p.o. on day 2. Abdominal pain is tolerable with p.o. analgesia. Patient ambulating. Ready for discharge with continuing outpatient treatment as per discharge plan below. Diagnosis: acute diverticulitis and diverticulosis sirs without endorgan damage due to diverticulitis Intractable abdominal pain secondary to diverticulitis , resolving Leukocytosis likely due to diverticulitis, resolving intravascular volume depletion intractable nausea, resolving Hepatic steatosis Small fat containing umbilical hernia Diabetes type 2 uncontrolled Chronic hypertension Chronic hyperlipidemia History of GERD Thyroid disease Uterine fibroids Right leg DVT History of anxiety Discharge plan: - augmentin 875mg 2x/day for x5 days (stop/dont use any old antibiotics levofloxacin, metronidazole) - zofran 4mg as needed for nausea (upto 3x/day) - percocet 5mg as needed for pain, max 3x/day, only use as 3rd line after tylenol and ibuprofen fail to control pain - full liquid diet x1-2 week (soup, broth, zero sugar drinks) - follow-up with PCP for discharge review - continue other home medications Condition at Discharge: Fair Final Diagnosis/Problems List acute diverticulitis and diverticulosis sirs without endorgan damage due to diverticulitis Intractable abdominal pain secondary to diverticulitis , resolving Leukocytosis likely due to diverticulitis, resolving IVVD intractable nausea, resolving Hepatic steatosis Small fat containing umbilical hernia Diabetes type 2 uncontrolled Chronic hypertension Chronic hyperlipidemia History of GERD Thyroid disease Uterine fibroids Right leg DVT History of anxiety Discharge Disposition: Home Discharge Instruct/Medications Diet: Consistent carbohydrate Activity: No Restrictions, As Tolerated Follow Up/Referral: pcp Medications: below Discharge Statement: "Patient was advised to return to the ER or call 911 if any headaches, dizziness, shortness of breath, chest pain, abdominal pain, bleeding, fevers, or worsening of medical condition. Patient was counseled about treatment plan, medications, possible side effects, patientverbalized understanding. All questions were answered to the best of my ability. This discharge took greater then 30 minutes in planning, reviewing documentation, counseling the patient, and discussing with other team members." Date of Service: Dec 12, 2024 Billing Provider: TRISHA BHAT MD Common Visit Codes: 94205-RUD/OBS DISCH DAY >30min TRISHA BHAT MD Dec 12, 2024 13:13
[2024-12-12] MEDS ORDERED: WARFARIN SODIUM 2.5 MG TAB PO ONE (17:00)
== END 2024-12-12 16:30 | disposition home or self-care (01) | DRG 244 ==
LOC: ER 04:18 → OVERFLOW 09:39 → WEST WING 15:27
DX: K57.32 Diverticulitis of large intestine without perforation or abscess without bleeding (principal); I82.401 Acute embolism and thrombosis of unspecified deep veins of right lower extremity; K76.0 Fatty (change of) liver, not elsewhere classified; R65.10 Systemic inflammatory response syndrome (SIRS) of non-infectious origin without acute organ dysfunction; D25.9 Leiomyoma of uterus, unspecified; E11.65 Type 2 diabetes mellitus with hyperglycemia; E03.9 Hypothyroidism, unspecified; I10 Essential (primary) hypertension; K21.9 Gastro-esophageal reflux disease without esophagitis; E78.5 Hyperlipidemia, unspecified; F41.9 Anxiety disorder, unspecified; K42.9 Umbilical hernia without obstruction or gangrene; E86.9 Volume depletion, unspecified; Z88.6 Allergy status to analgesic agent; Z88.5 Allergy status to narcotic agent; Z88.0 Allergy status to penicillin; Z79.899 Other long term (current) drug therapy; Z86.718 Personal history of other venous thrombosis and embolism
CPT/HCPCS: 36415; 74177; 80048; 81001; 82565; 82962; 83036; 85025; 85610; 85730; 96361; 96374; G0378; J1815; J2185; J2405; J2543

== ENCOUNTER 2025-09-19 08:59 | Emergency (ER) | payer MEDICAID ==
[~2025-09-19] VITALS: Ht 142.2 cm; Wt 109.7 kg
[~2025-09-19 08:59] MED LIST changes: +ATOR-47 PO; +AUG875T PO; -LEVO500T31 PO; -METR500T PO; +PERCOT PO; +SERT25TA28 PO; +WARF4TAB69 PO; +WARF4TAB70; +ZOFR4T PO
[2025-09-19 09:03] VITALS: BP 165/110; PULSE 89; RESP 16; TEMP 98.3; O2SAT 95
[2025-09-19] MEDS ORDERED: KETOROLAC TROMETH 30 MG/ML 1ML VIAL ONE (10:19)
[2025-09-19] MEDS: KETOROLAC TROMETH 30 MG/ML 1ML VIAL IM ONE (10:22)
[2025-09-19] MEDS ORDERED: CYCL-837 PO (10:44)
--- NOTE | 2025-09-19 10:44 | ED.PDOC ---
History of Present Illness HPI Comments Complaining of bilateral shoulder and neck pain x5 days. She states last week she was sick with a cold, it is slept poorly. Now she started having pain in her shoulders that led up to her head. Feels as though she has been a has been tight. Patient is on warfarin, she can only takes her in anti-inflammatories. Chief Complaint: Headache Time Seen by MD: 09:10 Primary Care Provider: JOSE DANIEL Reviewed Notes: Nurses Notes Allergies: Coded Allergies: Acetaminophen (Verified Allergy, Severe, 01/14/19) Hydrocodone (Verified Allergy, Severe, 01/14/19) Codeine (Unverified Allergy, Unknown, 01/14/19) Penicillins (Unverified Allergy, Unknown, 01/14/19) Home Meds Active Scripts Oxycodone W/ Acetaminophen (Percocet 5/325MG) 1 Tab Tb, 1 TAB PO TID PRN for 6 Days, #18 TAB 0 Refills Prov:TRISHA BHAT MD 12/12/24 Ondansetron Odt 4MG Tab (ZOFRAN PO) 4 Mg Tb, 4 MG PO TIDP PRN for 7 Days, #21 TAB 0 Refills ODT TAB-DISSOLVE IN MOUTH, THEN SWALLOW Prov:TRISHA BHAT MD 12/12/24 Amoxicillin & Pot Clavulanate (AUGMENTIN TABLET) 875 Mg Tb, 875 MG PO BID for 5 Days, #10 TAB Prov:TRISHA BHAT MD 12/12/24 Reported Medications Warfarin Sodium (Warfarin Sodium) 2 Mg Tab, 2 MG PO DAILY 12/11/24 Warfarin Sodium (Warfarin Sodium) 1 Mg Tab 12/11/24 Atorvastatin Calcium (ATORVASTATIN CALCIUM) 80 Mg Tab, 80 MG PO DAILY 12/11/24 Sertraline Hcl (Sertraline Hcl) 25 Mg Tab, 1 TAB PO DAILY 12/11/24 Propranolol Hcl (Inderal La) 80 Mg Cap, 80 MG PO BID, CAP 02/19/19 Metformin Hydrochloride (Metformin Hcl) 500 Mg Tab, 1000 MG PO IBID for 30 Days, MG 02/19/19 Omeprazole (Gnp Omeprazole) 20 Mg Tab, 2 TAB PO DAILY, #90 TAB 1 Refill 02/19/19 Lisinopril (Lisinopril) 5 Mg Tab, 5 MG PO DAILY for 30 Days, MG 02/19/19 Gabapentin (Gabapentin) 300 Mg Cap, 300 MG PO BID for 30 Days, MG 02/19/19 Methimazole (Methimazole) 5 Mg Tab, 5 MG PO DAILY, TAB 02/19/19 Information Source: Patient Mode of Arrival: Ambulatory Past Medical History PAST MEDICAL HISTORY: DM, GERD, High Lipids, HTN, MS, Thyroid Surgical History: Denies all surgeries 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 Family History Family History: No family hx of DM, No family hx of Heart claude, No family hx of HTN Social History Smoker: Non-Smoker Alcohol: Denies ETOH Use Drugs: Denies Drug Use Lives In: Home Constitutional: reports: fatigue; denies: chills, fever, malaise, sweats, weakness, others EENTM: denies: blurred vision, double vision, ear bleeding, ear discharge, ear drainage, ear pain, ear ringing, eye pain, eye redness, hearing loss, mouth pain, mouth swelling, nasal discharge, nose bleeding, nose congestion, nose pain, photophobia, tearing, throat pain, throat swelling, voice changes, others Respiratory: denies: cough, hemoptysis, orthopnea, SOB at rest, shortness of breath, SOB with excertion, stridor, wheezing, others Cardiovascular: denies: chest pain, dizzy spells, diaphoresis, Dyspnea on exertion, edema, irregular heart beat, left arm pain, lightheadedness, palpitations, PND, syncope, others Gastrointestinal: denies: abdomen distended, abdominal pain, blood streaked bowels, constipated, diarrhea, dysphagia, difficulty swallowing, hematemesis, melena, nausea, poor appetite, poor fluid intake, rectal bleeding, rectal pain, vomiting, others Genitourinary: denies: abnormal vagina bleeding, burning, dyspareunia, dysuria, flank pain, frequency, hematuria, incontinence, pain, , vagina discharge, urgency, others Neurological: denies: dizziness, fainting, headache, left sided numbness, left sided weakness, paresthesia, pre-existing deficit, right sided numbness, right sided weakness, seizure, speech problems, tingling, tremors, weakness, others Musculoskeletal: reports: back pain; denies: gout, joint pain, joint swelling, muscle pain, muscle stiffness, neck pain, others Physical Exam General Appearance: No Apparent Distress, Normal HEENT: Normal ENT Inspection, Pharynx Normal, TMs Normal Neck: Full Range of Motion, Normal, Normal Inspection, Other (Tender to palpation over bilateral trapezius muscles. Limited range motion of cervical spine due to pain. No vertebral point tenderness.) Respiratory: Chest Non-Tender, Lungs Clear, No Accessory Muscle Use, No Respiratory Distress, Normal Breath Sounds Cardiovascular: No Edema, No JVD, No Murmur, No Gallop, Normal Peripheral Pulses, Regular Rate/Rhythm Breast Exam: Deferred Gastrointestinal: No Organomegaly, Non Tender, No Pulsatile Mass, Normal Bowel Sounds, Soft Genitalia: Deferred Pelvic: Deferred Rectal: Deferred Extremities: No calf tenderness, Normal capillary refill, Normal inspection, Normal range of motion, Non-tender, No pedal edema Musculoskeletal : Apperance: Normal Neurologic: Alert, 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 Was a procedure done?: No Differential Dx Considerations may include: Torticollis, cervical strain, tension headache, stress X-Ray, Labs, Meds, VS Vital Signs Date Time Temp Pulse Resp B/P (MAP) Pulse Ox O2 Delivery O2 Flow Rate FiO2 09/19/25 09:03 98.3 89 16 165/110 95 98.3 X-Ray, Labs, Meds, VS Comment Imaging was reviewed by this provider, there is no obvious pathological or acute disease process. Pending radiology review Labs were reviewed by this provider, no abnormalities Vital signs reviewed by this provider, clinically stable Time of 1ST Reevaluation: 10:44 Reevaluation 1ST: Improved Patient Education/Counseling: Diagnosis, Treatment, Need For Follow Up (Follow up with PCP next available appointment. Return to the emergency department if symptoms worsen.) Family Education/Counseling: Diagnosis, Treatment SEPSIS Sepsis Screen Date sepsis recognized/suspect: Sep 19, 2025 Time Sepsis recognized/suspect: 905 Recent Procedure: No On Antibiotic Therapy: No Respiratory Rate >20: No Heart Rate >90: No Temp<36 C (96.8 F) or >38.3 C: No SBP <90 or MAP <65 mmHG: No New Acute Mental Status Change: No Is the patient on CPAP, BIPAP,: No Vital Signs Date Time Temp Pulse Resp B/P (MAP) Pulse Ox O2 Delivery O2 Flow Rate FiO2 09/19/25 09:03 98.3 89 16 165/110 95 98.3 Departure 1 Departure Time of Disposition: 10:39 Impression: Primary Impression: Cervical pain (neck) Additional Impression: Tension headache Disposition: 01 HOME / SELF CARE / HOMELESS Condition: Stable e-Prescriptions Cyclobenzaprine Hcl (Cyclobenzaprine Hcl) 5 Mg Tab 1 TAB PO TID PRN, #30 TAB Prov: KEL GONZALEZ 09/19/25 Discharged With: Self Critical Care Note Critical Care Time?: No Stability Stability form required: No Heart Score Heart Score: Heart Score Response (Comments) Value History N/A 0 EKG N/A 0 Age N/A 0 Risk Factors N/A 0 Troponin N/A 0 Total 0 KEL GONZALEZ Sep 19, 2025 10:44
== END 2025-09-19 10:55 | disposition home or self-care (01) ==
LOC: ER 08:59
DX: G44.209 Tension-type headache, unspecified, not intractable (principal); M54.2 Cervicalgia; M25.511 Pain in right shoulder; M25.512 Pain in left shoulder; I10 Essential (primary) hypertension; E11.9 Type 2 diabetes mellitus without complications; E78.5 Hyperlipidemia, unspecified; I21.9 Acute myocardial infarction, unspecified; K21.9 Gastro-esophageal reflux disease without esophagitis; Z79.899 Other long term (current) drug therapy; Z86.018 Personal history of other benign neoplasm; Z88.0 Allergy status to penicillin; Z88.5 Allergy status to narcotic agent
CPT/HCPCS: J1885

== ENCOUNTER 2025-10-08 08:18 | Emergency (ER) | payer MEDICAID ==
[~2025-10-08] VITALS: Ht 142.2 cm; Wt 105.0 kg
[~2025-10-08 08:18] MED LIST changes: +CYCL-837 PO
[2025-10-08 08:33] VITALS: BP 138/81; PULSE 71; RESP 18; TEMP 98.7; O2SAT 95
[2025-10-08] MEDS: HYDROcodone-ACET 10/325MG TAB PO ONE (08:44)
--- NOTE | 2025-10-08 09:00 | ED.PDOC ---
Musculoskeletal HPI Comments A 60 YEAR OLD FEMALE PRESENTS TO THE ED WITH COMPLAINT OF RIGHT KNEE PAIN. PATIENT STATES SHE HAS BEEN EXPERIENCING RIGHT KNEE PAIN THAT IS WORSE WITH MOVEMENT FOR THE PAST 2 WEEKS. PATIENT DENIES ANY INJURY TO THE AFFECTED AREA, BUT WOULD LIKE TO BE EVALUATED. PATIENT DENIES FEVER, CHILLS, SHORTNESS OF BREATH, CHEST PAIN, ABDOMINAL PAIN, NAUSEA, VOMITING, HEADACHE, OR OTHER COMPLAINTS. NO OTHER SYMPTOMS OR MODIFYING FACTORS AT THIS TIME. PATIENT IS ALERT, ORIENTED X 4, AND HAS STEADY GAIT. Chief Complaint: Lower Extremity Time Seen by MD: 08:22 Primary Care Provider: JOSE DANIEL Reviewed Notes: Nurses Notes, Medications, Allergies Allergies: Coded Allergies: Acetaminophen (Verified Allergy, Severe, 01/14/19) Hydrocodone (Verified Allergy, Severe, 01/14/19) Codeine (Unverified Allergy, Unknown, 01/14/19) Penicillins (Unverified Allergy, Unknown, 01/14/19) Home Meds Active Scripts Tramadol HCl (Tramadol HCl) 50 Mg Tab, 50 MG PO BID, #20 TAB Prov:LIOR BROWN 10/08/25 Cyclobenzaprine Hcl (Cyclobenzaprine Hcl) 5 Mg Tab, 1 TAB PO TID PRN, #30 TAB Prov:KEL GONZALEZ 09/19/25 Oxycodone W/ Acetaminophen (Percocet 5/325MG) 1 Tab Tb, 1 TAB PO TID PRN for 6 Days, #18 TAB 0 Refills Prov:TRISHA BHAT MD 12/12/24 Ondansetron Odt 4MG Tab (ZOFRAN PO) 4 Mg Tb, 4 MG PO TIDP PRN for 7 Days, #21 TAB 0 Refills ODT TAB-DISSOLVE IN MOUTH, THEN SWALLOW Prov:TRISHA BHAT MD 12/12/24 Amoxicillin & Pot Clavulanate (AUGMENTIN TABLET) 875 Mg Tb, 875 MG PO BID for 5 Days, #10 TAB Prov:TRISHA BHAT MD 12/12/24 Reported Medications Warfarin Sodium (Warfarin Sodium) 2 Mg Tab, 2 MG PO DAILY 12/11/24 Warfarin Sodium (Warfarin Sodium) 1 Mg Tab 12/11/24 Atorvastatin Calcium (ATORVASTATIN CALCIUM) 80 Mg Tab, 80 MG PO DAILY 12/11/24 Sertraline Hcl (Sertraline Hcl) 25 Mg Tab, 1 TAB PO DAILY 12/11/24 Propranolol Hcl (Inderal La) 80 Mg Cap, 80 MG PO BID, CAP 02/19/19 Metformin Hydrochloride (Metformin Hcl) 500 Mg Tab, 1000 MG PO IBID for 30 Days, MG 02/19/19 Omeprazole (Gnp Omeprazole) 20 Mg Tab, 2 TAB PO DAILY, #90 TAB 1 Refill 02/19/19 Lisinopril (Lisinopril) 5 Mg Tab, 5 MG PO DAILY for 30 Days, MG 02/19/19 Gabapentin (Gabapentin) 300 Mg Cap, 300 MG PO BID for 30 Days, MG 02/19/19 Methimazole (Methimazole) 5 Mg Tab, 5 MG PO DAILY, TAB 02/19/19 Information Source: Patient Mode of Arrival: Wheelchair Location: Right Extremity Location: Knee Timing: Days Prehospital treatment: None Severity: Moderate Able to Move Extremity: Yes Bear Weight: Limited Pain: Moderate Mechanism: No Trauma, Spontaneous Circumstances: Spontaneous Onset of Symptoms: Spontaneous Symptoms: Pain DVT Risk Factors: NONE Last Tetanus: Unknown Associated signs and symptoms: Knee pain Past Medical History PAST MEDICAL HISTORY: Arthritis, DM, GERD, High Lipids, HTN, Thyroid Surgical History: Denies all surgeries 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 Family History Family History: Reviewed,noncontributory to illness, No family hx of DM, No family hx of Heart claude, No family hx of HTN Social History Smoker: Non-Smoker Alcohol: Denies ETOH Use Drugs: Denies Drug Use Lives In: Home Constitutional: denies: chills, diaphoresis, fatigue, fever, malaise, sweats, weakness, others EENTM: denies: blurred vision, double vision, ear bleeding, ear discharge, ear drainage, ear pain, ear ringing, eye pain, eye redness, hearing loss, mouth pain, mouth swelling, nasal discharge, nose bleeding, nose congestion, nose pain, photophobia, tearing, throat pain, throat swelling, voice changes, others Respiratory: denies: cough, hemoptysis, orthopnea, SOB at rest, shortness of breath, SOB with excertion, stridor, wheezing, others Cardiovascular: denies: chest pain, dizzy spells, diaphoresis, Dyspnea on exertion, edema, irregular heart beat, left arm pain, lightheadedness, palpitations, PND, syncope, others Gastrointestinal: denies: abdomen distended, abdominal pain, blood streaked bowels, constipated, diarrhea, dysphagia, difficulty swallowing, hematemesis, melena, nausea, poor appetite, poor fluid intake, rectal bleeding, rectal pain, vomiting, others Genitourinary: denies: abnormal vagina bleeding, burning, dyspareunia, dysuria, flank pain, frequency, hematuria, incontinence, pain, , vagina discharge, urgency, others Neurological: denies: dizziness, fainting, headache, left sided numbness, left sided weakness, numbness, paresthesia, pre-existing deficit, right sided numbness, right sided weakness, seizure, speech problems, tingling, tremors, weakness, others Musculoskeletal: reports: joint pain, joint swelling, others (RIGHT KNEE PAIN); denies: back pain, gout, muscle pain, muscle stiffness, neck pain Integumetry: denies: bruises, change in color, change in hair/nails, dryness, laceration, lesions, lumps, rash, wounds, others Allergic/Immunocompromised: denies: Difficulty Healing, Frequent Infections, Hives, Itching, others Hematologic/Lymphatic: denies: anemia, blood clots, easy bleeding, easy bruising, swollen glands, others Endocrine: denies: excessive hunger, excessive sweating, excessive thirst, excessive urination, flushing, intolerance to cold, intolerance to heat, unexplained weight gain, unexplained weight loss, others Psychiatric: denies: anxiety, bipolar disorder, depression, hopeless, panic disorder, schizophrenia, sleepless, suicidal, others All Other Systems: Reviewed and Negative Physical Exam General Appearance: No Apparent Distress, Obese HEENT: Normal ENT Inspection, PERRL/EOMI, Pharynx Normal, TMs Normal Neck: Full Range of Motion, Non-Tender, Normal, Normal Inspection Respiratory: Chest Non-Tender, Lungs Clear, No Accessory Muscle Use, No Respiratory Distress, Normal Breath Sounds Cardiovascular: No Edema, No JVD, No Murmur, No Gallop, Normal Peripheral Pul ses, Regular Rate/Rhythm Breast Exam: Deferred Gastrointestinal: No Organomegaly, Non Tender, No Pulsatile Mass, Normal Bowel Sounds, Soft Genitalia: Deferred Pelvic: Deferred Rectal: Deferred Extremities: Decreased range of motion, No calf tenderness, Normal capillary refill, No pedal edema, Tender (AND MILD SWELLING ON RIGHT KNEE, NO BONY TENDERNESS AND DEFORMITY, NO REDNESS, SWELLIN G AND DVTSIGNS. 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 Was a procedure done?: No Differential Diagnosis EXT Differential Diagnosis: Sprain, DJD, Strain, Arthritis, Bursitis X-Ray, Labs, Meds, VS Vital Signs Date Time Temp Pulse Resp B/P (MAP) Pulse Ox O2 Delivery O2 Flow Rate FiO2 10/08/25 08:33 71 18 95 Room Air 10/08/25 08:33 98.7 71 18 138/81 (100) 95 98.7 10/08/25 08:20 98.7 71 18 138/81 95 98.7 Current Medications Medications (Trade) Dose Ordered Sig/Estefania Route Start Time Stop Time Status Last Admin Acetaminophen/ Hydrocodone Bitart ([place] 10/325MG Tab) 1 tab ONCE ONCE PO 10/08/25 08:45 10/08/25 08:46 DC 10/08/25 08:44 X-Ray, Labs, Meds, VS Comment EXTERNAL MEDICAL RECORDS REVIEWED: [NONE] INDEPENDENT HISTORIANS: [NONE] SOCIAL DETERMINANTS OF HEALTH: [NONE] LABS ORDERED: NONE REVIEWED AND INTERPRETED RESULTS: NONE IMAGING ORDERED: XR KNEE RT: [INTERPRETED BY ME. NO ACUTE FRACTURE OR DISLOCATION SEEN. DJD OF THE KNEE VISUALIZED. PENDING RADIOLOGY REVIEW.] TREATMENTS ORDERED: [place]CO 10/325 MG PO PROCEDURES PERFORMED: NONE CRITICAL CARE TIME: NONE I HAVE DISCUSSED THE PATIENT WITH THE ATTENDING PHYSICIAN DR. REZA AND HE AGREES WITH THE PATIENT'S PLAN OF CARE AND DISPOSITION. BASED ON HISTORY OF PRESENT ILLNESS, AND PHYSICAL EXAM, PATIENT WILL BE DISCHARGED HOME. DISCUSSED PLAN FOR DISCHARGE HOME WITH RX [TRAMADOL]. MEDICATION WARNINGS GIVEN. SHARED DECISION MAKING: PATIENT INSTRUCTED TO FOLLOW UP WITH PRIMARY CARE PROVIDER IN 1-2 DAYS FOR RE-EVALUATION OF SYMPTOMS. PATIENT VERBALIZES UNDERSTANDING TO RETURN TO ED FOR NEW OR WORSENING SYMPTOMS OR IF FOLLOW UP WITH PCP CANNOT BE OBTAINED. PATIENT FEELS COMFORTABLE GOING HOME AT THIS TIME. ALL QUESTIONS ADDRESSED AT TIME OF DISCHARGE. Images Reviewed?: Images reviewed and evaluated by me Time of 1ST Reevaluation: 09:13 Reevaluation 1ST: Improved Patient Education/Counseling: Diagnosis, Treatment, Need For Follow Up Family Education/Counseling: Diagnosis, Treatment, Need For Follow Up Medical Screening: No EMC Exist At This Time Departure 1 Departure Time of Disposition: :13 Impression: Primary Impression: Degenerative joint disease of right knee Qualified Codes: M17.11 - Unilateral primary osteoarthritis, right knee Disposition: HOME / SELF CARE / HOMELESS Condition: Stable Additional Instructions: FOLLOW-UP WITH PCP IN 1 TO 2 DAYS. TAKE MEDICATIONS PRESCRIBED. RETURN TO ED FOR ANY NEW OR WORSENING SYMPTOMS. e-Prescriptions Tramadol HCl (Tramadol HCl) 50 Mg Tab 50 MG PO BID, #20 TAB Prov: LIOR BROWN 10/08/25 Discharged With: Self, Spouse Critical Care Note Critical Care Time?: No Stability Stability form required: No I personally scribed for LIOR BROWN ([email or web address]) on 10/08/25 at 09:00. Electronically submitted by Brodie Grullon ([email or web address]). I personally scribed for LIOR BROWN ([email or web address]) on 10/08/25 at 09:10. Electronically submitted by Brodie Grullon ([email or web address]). LIOR BROWN Oct 08, 2025 09:00
[2025-10-08] MEDS ORDERED: TRAM-626 PO (09:11)
--- NOTE | 2025-10-08 09:23 | DVH ---
CLINICAL INDICATION: PAIN, NO INJURY TECHNIQUE: XY R KNEE 3V XRAY COMPARISON: XR KNEE COMPLETE LT on DOS: 07/21/24, L HIP COMPLETE XRAY on DOS: 02/18/19 FINDINGS/IMPRESSION: : No acute fracture or dislocation. Moderate to severe degenerative changes most prominent at the patellofemoral and lateral joint space compartment.
== END 2025-10-08 09:14 | disposition home or self-care (01) ==
LOC: ER 08:18
DX: M17.11 Unilateral primary osteoarthritis, right knee (principal); I10 Essential (primary) hypertension; E11.9 Type 2 diabetes mellitus without complications; E78.5 Hyperlipidemia, unspecified; E03.9 Hypothyroidism, unspecified; K21.9 Gastro-esophageal reflux disease without esophagitis; Z79.899 Other long term (current) drug therapy; Z86.018 Personal history of other benign neoplasm; Z88.0 Allergy status to penicillin; Z88.5 Allergy status to narcotic agent; Z88.8 Allergy status to other drugs, medicaments and biological substances
CPT/HCPCS: 73562

== ENCOUNTER 2025-10-25 09:32 | Emergency (ER) | payer MEDICAID ==
[~2025-10-25] VITALS: Ht 149.9 cm; Wt 110.5 kg
[~2025-10-25 09:32] MED LIST changes: +TRAM-626 PO
--- NOTE | 2025-10-25 10:24 | ED.PDOC ---
Musculoskeletal HPI Comments 60 yr F w/ history of knee arthritis, prior deep vein thrombosis (DVT) approximately four years before this visit, Grave's disease, and insulin- dependent diabetes, presents for evaluation of new right lower leg pain. The pain began one day before this visit and has been persistent. The patient reports the pain is localized from the knee down toward the fibular region, with visible veins noted in the area. The patient denies recent fall or injury and reports no associated chest pain or shortness of breath. The previous knee pain from arthritis has resolved, but now there is new pain below the knee The patient recalls the prior DVT was in the same right leg but cannot recall the specific vein. 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 Chief Complaint: Lower Extremity Time Seen by MD: 10:15 Primary Care Provider: JOSE DANIEL Reviewed Notes: Nurses Notes, Medications, Allergies Allergies: Coded Allergies: Acetaminophen (Verified Allergy, Severe, 01/14/19) Hydrocodone (Verified Allergy, Severe, 01/14/19) Codeine (Unverified Allergy, Unknown, 01/14/19) Penicillins (Unverified Allergy, Unknown, 01/14/19) Home Meds Active Scripts Diclofenac Sodium (Topical) (Voltaren Arthritis Pain) 1 % Gel, 1 % EX QID for 30 Days, #60 GRAMS 0 Refills Prov:ALEXANDER DOUGLAS RN WOUND CARE 10/25/25 Tramadol HCl (Tramadol HCl) 50 Mg Tab, 50 MG PO BID, #20 TAB Prov:LIOR BROWN PA 10/08/25 Cyclobenzaprine Hcl (Cyclobenzaprine Hcl) 5 Mg Tab, 1 TAB PO TID PRN, #30 TAB Prov:KEL GONZALEZ [employer] TECHNICIAN 09/19/25 Oxycodone W/ Acetaminophen (Percocet 5/325MG) 1 Tab Tb, 1 TAB PO TID PRN for 6 Days, #18 TAB 0 Refills Prov:TRISHA BHAT MD 12/12/24 Ondansetron Odt 4MG Tab (ZOFRAN PO) 4 Mg Tb, 4 MG PO TIDP PRN for 7 Days, #21 TAB 0 Refills ODT TAB-DISSOLVE IN MOUTH, THEN SWALLOW Prov:TRISHA BHAT MD 12/12/24 Amoxicillin & Pot Clavulanate (AUGMENTIN TABLET) 875 Mg Tb, 875 MG PO BID for 5 Days, #10 TAB Prov:TRISHA BHAT MD 12/12/24 Reported Medications Warfarin Sodium (Warfarin Sodium) 2 Mg Tab, 2 MG PO DAILY 12/11/24 Warfarin Sodium (Warfarin Sodium) 1 Mg Tab 12/11/24 Atorvastatin Calcium (ATORVASTATIN CALCIUM) 80 Mg Tab, 80 MG PO DAILY 12/11/24 Sertraline Hcl (Sertraline Hcl) 25 Mg Tab, 1 TAB PO DAILY 12/11/24 Propranolol Hcl (Inderal La) 80 Mg Cap, 80 MG PO BID, CAP 02/19/19 Metformin Hydrochloride (Metformin Hcl) 500 Mg Tab, 1000 MG PO IBID for 30 Days, MG 02/19/19 Omeprazole (Gnp Omeprazole) 20 Mg Tab, 2 TAB PO DAILY, #90 TAB 1 Refill 02/19/19 Lisinopril (Lisinopril) 5 Mg Tab, 5 MG PO DAILY for 30 Days, MG 02/19/19 Gabapentin (Gabapentin) 300 Mg Cap, 300 MG PO BID for 30 Days, MG 02/19/19 Methimazole (Methimazole) 5 Mg Tab, 5 MG PO DAILY, TAB 02/19/19 Information Source: Patient Mode of Arrival: Ambulatory Location: Right Extremity Location: Leg Timing: Hours Prehospital treatment: None Severity: Moderate Able to Move Extremity: Yes Bear Weight: Limited Pain: Moderate Hand Dominance: Right Mechanism: Spontaneous Circumstances: Spontaneous Onset of Symptoms: Spontaneous Symptoms: Pain DVT Risk Factors: DVT (To the same extremity four years ago) Associated signs and symptoms: None Past Medical History PAST MEDICAL HISTORY: Arthritis, DM, GERD, High Lipids, HTN, Thyroid Past Medical History (Other): DVT to the right lower extremity Surgical History: Denies all surgeries 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: Uterine Fibroids Family History Family History: Reviewed,noncontributory to illness, Unknown Social History Smoker: Non-Smoker Alcohol: Denies ETOH Use Drugs: Denies Drug Use Lives In: Home Constitutional: denies: chills, diaphoresis, fatigue, fever, malaise, sweats, weakness, others EENTM: denies: blurred vision, double vision, ear bleeding, ear discharge, ear drainage, ear pain, ear ringing, eye pain, eye redness, hearing loss, mouth pain, mouth swelling, nasal discharge, nose bleeding, nose congestion, nose pain, photophobia, tearing, throat pain, throat swelling, voice changes, others Respiratory: denies: cough, hemoptysis, orthopnea, SOB at rest, shortness of breath, SOB with excertion, stridor, wheezing, others Cardiovascular: denies: chest pain, dizzy spells, diaphoresis, Dyspnea on exertion, edema, irregular heart beat, left arm pain, lightheadedness, palpitations, PND, syncope, others Gastrointestinal: denies: abdomen distended, abdominal pain, blood streaked bowels, constipated, diarrhea, dysphagia, difficulty swallowing, hematemesis, melena, nausea, poor appetite, poor fluid intake, rectal bleeding, rectal pain, vomiting, others Genitourinary: denies: abnormal vagina bleeding, burning, dyspareunia, dysuria, flank pain, frequency, hematuria, incontinence, pain, , vagina discharge, urgency, others Neurological: denies: dizziness, fainting, headache, left sided numbness, left sided weakness, numbness, paresthesia, pre-existing deficit, right sided numbness, right sided weakness, seizure, speech problems, tingling, tremors, weakness, others Musculoskeletal: denies: back pain, gout, joint pain, joint swelling, muscle pain, muscle stiffness, neck pain, others Integumetry: reports: others (Right lower extremity pain); denies: bruises, change in color, change in hair/nails, dryness, laceration, lesions, lumps, rash, wounds Allergic/Immunocompromised: denies: Difficulty Healing, Frequent Infections, Hives, Itching, others Hematologic/Lymphatic: denies: anemia, blood clots, easy bleeding, easy bruising, swollen glands, others Endocrine: denies: excessive hunger, excessive sweating, excessive thirst, excessive urination, flushing, intolerance to cold, intolerance to heat, unexplained weight gain, unexplained weight loss, others Psychiatric: denies: anxiety, bipolar disorder, depression, hopeless, panic disorder, schizophrenia, sleepless, suicidal, others All Other Systems: Reviewed and Negative Physical Exam Exam Comments Tenderness noted over the right lower leg in the region of the fibula. Visible veins observed over the area of pain. General Appearance: No Apparent Distress, Normal HEENT: Normal ENT Inspection, Pharynx Normal, TMs Normal Neck: Full Range of Motion, Non-Tender, Normal, Normal Inspection Respiratory: Chest Non-Tender, Lungs Clear, No Accessory Muscle Use, No Respiratory Distress, Normal Breath Sounds Cardiovascular: No Edema, No JVD, No Murmur, No Gallop, Normal Peripheral Pulses, Regular Rate/Rhythm Breast Exam: Deferred Gastrointestinal: No Organomegaly, Non Tender, No Pulsatile Mass, Normal Bowel Sounds, Soft Genitalia: Deferred Pelvic: Deferred Rectal: Deferred Extremities: No calf tenderness, Normal capillary refill, Normal inspection, Normal range of motion, Non-tender, No pedal edema Musculoskeletal : Apperance: Normal Neurologic: Alert, hotel room attendant II-XII nml as Tested, No Motor Deficits, Normal Affect, Normal Mood, No Sensory Deficits Cerebellar Function: Normal Reflexes: Normal Skin: Dry, Normal Color, Warm Lymphatic: No Adenopathy Was a procedure done? Was a procedure done?: No Differential Diagnosis EXT Differential Diagnosis: Cellulitis, Deep Vein Thrombosis, Fracture, Sprain X-Ray, Labs, Meds, VS Vital Signs Date Time Temp Pulse Resp B/P (MAP) Pulse Ox O2 Delivery O2 Flow Rate FiO2 10/25/25 12:05 98.5 73 22 130/68 (88) 95 98.5 10/25/25 09:34 97.0 88 15 153/86 96 97.0 X-Ray, Labs, Meds, VS Comment Patient arrives alert and oriented, ABC's intact, afebrile, vital signs stable, saturating well in room air The patient presents with signs and symptoms concerning for deep venous thrombosis. The differential diagnosis includes but is not limited to: DVT, thrombophlebitis, trauma, venous stasis, peripheral edema, cellulitis. The patient was overall stable while in the ED. They had normal oxygenation on room air and did not require any supplemental oxygen. Heart rate has remained stable while in the ED. Nontoxic appearing. No lymphangitic spread visible. No fluid pockets or fluctuance concerning for abscess. Low concern for cellulitis or osteomyelitis. No evidence of phlegmasia cerulea or alba dolens. Focal and unilateral nature not consistent with heart failure. On reevaluation, patient had symptomatic improvement. Patient is stable for discharge at this time. External notes reviewed. Test results and diagnostic imaging interpreted. All diagnostic findings, discharge care, education and instructions provided Follow-up with PCP in 2 to 3 days Patient verbalized understanding and agreed to treatment plan Vital signs stable, afebrile, no acute distress noted Patient ambulatory with strong steady gait Advised to return precautions for any new or worsening symptoms, return to ER immediately for re-evaluation Patient is aware that the purpose of this visit was for an acute medical emergency requiring emergent stabilization. Chronic conditions, including malignancies have not been ruled out. Patient is instructed to follow up with PCP as directed and discharge instructions for continued care and workup. If unable to arrange follow-up, patient is to return to the emergency department for reassessment. Patient (parent or legal guardian if applicable) was given verbal and written discharge instructions and acknowledges understanding. Time of 1ST Reevaluation: 10:45 Reevaluation 1ST: Unchanged Patient Education/Counseling: Diagnosis, Treatment, Prognosis Family Education/Counseling: No Family Present Departure 1 Departure Time of Disposition: 12:57 Impression: Primary Impression: Right leg pain Disposition: 01 HOME / SELF CARE / HOMELESS Condition: Stable e-Prescriptions Diclofenac Sodium (Topical) (Voltaren Arthritis Pain) 1 % Gel 1 % EX QID for 30 Days, #60 GRAMS 0 Refills Prov: ALEXANDER DOUGLAS NP 10/25/25 Critical Care Note Critical Care Time?: No Stability Stability form required: No Heart Score Heart Score: Heart Score Response (Comments) Value History N/A 0 EKG N/A 0 Age N/A 0 Risk Factors N/A 0 Troponin N/A 0 Total 0 I personally scribed for ALEXANDER DOUGLAS NP ([email or web address]) on 10/25/25 at 10:24. Electronically submitted by Artem Kim ([employer]). I personally scribed for ALEXANDER DOUGLAS NP ([email or web address]) on 10/25/25 at 11:21. Electronically submitted by Artem Kim ([employer]). ALEXANDER DOUGLAS NP Oct 25, 2025 10:24
[2025-10-25 12:05] VITALS: BP 130/68; PULSE 73; RESP 22; TEMP 98.5; O2SAT 95
--- NOTE | 2025-10-25 12:53 | DVH ---
Right lower extremity venous duplex CLINICAL HISTORY: R/o DVT COMPARISON: None TECHNIQUE: Duplex Doppler evaluation of the deep venous system of the right lower extremity from the common femoral vein to the popliteal vein including color Doppler and spectral/pulsed waveform analysis was performed. FINDINGS: The common femoral vein demonstrates appropriate compressibility and waveform variability. There is compressibility/patency of the great saphenous vein at the proximal thigh. The femoral vein demonstrates appropriate compressibility and waveform variability. The deep femoral vein demonstrates appropriate compressibility and waveform variability. The popliteal vein demonstrates appropriate compressibility and waveform variability. There is normal compressibility at the tibioperoneal trunk. IMPRESSION: No right femoropopliteal venous thrombosis.
[2025-10-25] MEDS ORDERED: DICL1GEL59 EX (12:58)
== END 2025-10-25 13:15 | disposition home or self-care (01) ==
LOC: ER 09:34
DX: M79.661 Pain in right lower leg (principal); E11.9 Type 2 diabetes mellitus without complications; I10 Essential (primary) hypertension; M17.10 Unilateral primary osteoarthritis, unspecified knee; Z79.899 Other long term (current) drug therapy; Z88.0 Allergy status to penicillin; Z88.5 Allergy status to narcotic agent
CPT/HCPCS: 93971